=== PATIENT | female | born 1960 | race Caucasian/White ===

== ENCOUNTER 2018-09-15 08:15 | Emergency (ER) | payer OTHER ==
[2018-09-15] MEDS ORDERED: BENADRYL 50 MG/ML IV ONE (08:44)
[2018-09-15] MEDS ORDERED: solu-MEDROL 125 MG IV ONE (08:44)
[2018-09-15] MEDS ORDERED: DUONEB 0.5-3 MG/3 ml Neb IH ONE ×2 (08:44→09:47)
--- NOTE | 2018-09-15 08:52 | ERPHSYRPT ---
- History of Present Illness Time Seen by Provider: 09/15/18 08:30 Source: patient Exam Limitations: clinical condition Patient Subjective Stated Complaint: Pt took off her CPAP this morning and was short of breath, took Niacin at approx 0300 and also woke up itching, had a breathing treatment in the ambulance and was able to breath better and was no longer itchy Triage Nursing Assessment: Pt brought to the ER via EMS, vitals wnl, no edema, pulses normal, lungs clear but not taking in much air, rates pain 4/10 in chest due to breathing, no angio edema, denies itching, on 3 L NC Physician History: PATIENT WITH A HISTORY OF TYPE 2 DIABETES, COPD, AND HYPERTENSION, HAS ITCHING AFTER TAKING NIACIN, TOOK DOSE AT 3AM AND AWAKENED THIS AM WITH GENERALIZED ITCHING AND DIFFICULTY BREATHING ASSOCIATED WITH A PRODUCTIVE COUGH. ADMINISTERED A DUONEB AEROSOL TREATMENT PER EMS ENROUTE, AND ITCHING RESOLVED UPON ARRIVAL TO EMERGENCY. DENIES CHEST PAIN, FEVER, OR HIVES OR RASH. Timing/Duration: today Activities at Onset: none Severity of Dyspnea-Max: moderate Severity of Dyspnea-Current: moderate Possible Cause: occasional episodes Modifying Factors: Improves With: coughing, other (HAS ITCHING AFTER TAKING NIACIN) Associated Symptoms: wheezing (ITCHING) International travel in last 2 weeks: No Allergies/Adverse Reactions: No Known Drug Allergies Allergy (Verified 09/15/18 08:32) Home Medications: Albuterol 8 gm Mdi Hfa [Ventolin Hfa MDI] 8 gm IH UD 09/15/18 [History] Amitriptyline HCl 50 mg PO DAILY 09/15/18 [History] Aspirin EC 81 mg [Ecotrin 81 mg] 81 mg PO DAILY 09/15/18 [History] Gabapentin 300 mg PO TID 09/15/18 [History] Ipratropium/Albuterol Sulfate [Iprat-Albut 0.5-3(2.5) mg/3 ml] 3 ml IH QID 09/15 [History] Losartan/Hydrochlorothiazide [Losartan-Hctz 50-12.5 mg Tab] 1 each PO DAILY 07/30 [History] Metformin HCl 500 mg [Glucophage 500 MG] 500 mg PO BIDWM 09/15/18 [History ] Niacin 500 mg PO DAILY 09/15/18 [History] Omeprazole 20 mg PO DAILY 09/15/18 [History] Umeclidinium Brm/Vilanterol Tr [Anoro Ellipta 62.5-25 Mcg INH] 1 inh PO DAILY [History] Hx Pneumococcal Vaccination/Date Given: (last fall) - Review of Systems Constitutional: No Fever, No Chills Eyes: No Symptoms Ears, Nose, & Throat: No Symptoms Respiratory: No Cough Cardiac: No Chest Pain, No Edema, No Syncope Abdominal/Gastrointestinal: No Symptoms, No Abdominal Pain, No Nausea, No Vomiting, No Diarrhea Genitourinary Symptoms: No Symptoms, No Dysuria Musculoskeletal: No Symptoms, No Back Pain, No Neck Pain Skin: No Rash Neurological: No Dizziness, No Focal Weakness, No Sensory Changes Psychological: No Symptoms Endocrine: No Symptoms All Other Systems: Reviewed and Negative - Past Medical History Pertinent Past Medical History: Yes Respiratory History: COPD Endocrine Medical History: Diabetes Type II GI Medical History: GERD - Past Surgical History Past Surgical History: Yes Female Surgical History: Tubal Ligation Other Surgical History: vein stripping in right leg - Social History Smoking Status: Former smoker Exposure to second hand smoke: Yes Drug Use: none Patient Lives Alone: No - Female History Hx Now: No - Nursing Vital Signs Nursing Vital Signs: Initial Vital Signs Temperature 97.8 F 09/15/18 08:15 Pulse Rate 89 09/15/18 08:15 Blood Pressure 133/78 09/15/18 08:15 O2 Sat by Pulse Oximetry 94 L 09/15/18 08:15 Pain Scale Pain Intensity 4 - Physical Exam General Appearance: no apparent distress, alert Eye Exam: PERRL/EOMI Ears, Nose, Throat Exam: hearing grossly normal Neck Exam: normal inspection, supple Respiratory Exam: diminished breath sounds, crackles/rales (1/3 WAY UP POSTERIORLY) Cardiovascular/Chest Exam: normal heart sounds, regular rate/rhythm Abdominal/Gastrointestinal Exam: soft, No tenderness, No distention, No mass Extremity Exam: non-tender, normal range of motion, normal inspection, no calf tenderness, no pedal edema Peripheral Pulses Exam: carotid (R): 2+, carotid (L): 2+, femoral (R): 2+, femoral (L): 2+, dorsalis-pedis (R): 2+, dorsalis-pedis (L): 2+ Neurologic Exam: alert, oriented x 3, cooperative, eeg technician II-XII nml as tested, sensation nml, No motor deficits Skin Exam: normal color, warm, No dry SpO2 Interpretation: normal SpO2: 94 - Course EKG Interpreted by Me: RATE, Sinus Rhythm, Right Greig Deviation - Radiology Exams Chest X-ray Interpretation: Discussed w/ radiologist, Negative, No Infiltrates Ordered Tests: Active Orders 24 hr Category Date Time Status Business Objects STAT Care 09/15/18 08:45 Active EKG-ER Only STAT Care 09/15/18 08:44 Active Oxygen-ED Only Nasal Cannula 2 lpm Care 09/15/18 08:44 Active CHEST 2 VIEWS (PA AND LAT) Stat Exams 09/15/18 08:44 Completed CBC W DIFF Stat Lab 09/15/18 09:05 Completed CMP Stat Lab 09/15/18 09:05 Completed NT PRO BNP Stat Lab 09/15/18 09:05 Received PROTIME WITH INR Stat Lab 09/15/18 09:05 Completed TROPONIN Q3H Lab 09/15/18 09:05 Received TROPONIN Q3H Lab 09/15/18 12:00 Ordered TROPONIN Q3H Lab 09/15/18 15:00 Ordered TROPONIN Q3H Lab 09/15/18 18:00 Ordered TROPONIN Q3H Lab 09/15/18 21:00 Ordered Peak Expiratory Flow Rate ONCE RT 09/15/18 08:46 Active Respiratory Therapy Assessment DAILY RT 09/15/18 10:09 Active Medication Summary Discontinued Medications Generic Name Dose Route Start Last Admin Trade Name Freq PRN Reason Stop Dose Admin Albuterol/Ipratropium 3 ml 09/15/18 08:44 09/15/18 10:06 Duoneb 0.5-3 Mg/3 Ml Neb IH 09/15/18 08:45 3 ml STAT ONE Administration Albuterol/Ipratropium Confirm 09/15/18 09:47 Duoneb 0.5-3 Mg/3 Ml Neb Administered 09/15/18 09:48 Dose 3 ml IH .STK-MED ONE Diphenhydramine HCl 25 mg 09/15/18 08:44 09/15/18 09:37 Benadryl 50 Mg/Ml IV 09/15/18 08:45 25 mg STAT ONE Administration Diphenhydramine HCl Confirm 09/15/18 09:33 Benadryl 50 Mg/Ml Administered 09/15/18 09:34 Dose 50 mg .ROUTE .STK-MED ONE Ceftriaxone Sodium/Dextrose 1 g in 50 mls @ 100 mls/hr 09/15/18 09:44 09:49 Rocephin 1 Gm-D5w 50 Ml Bag IV 09/15/18 10:13 100 mls/hr STAT STA 100 mls/hr Administration Ceftriaxone Sodium/Dextrose Confirm 09/15/18 09:46 Rocephin 1 Gm-D5w 50 Ml Bag Administered 09/15/18 09:47 Dose 1 g in 50 mls @ ud IV .STK-MED ONE Methylprednisolone Sodium Succinate 125 mg 09/15/18 08:44 09/15/18 09:37 Solu-Medrol 125 Mg IV 09/15/18 08:45 125 mg STAT ONE Administration Methylprednisolone Sodium Succinate Confirm 09/15/18 09:33 Solu-Medrol 125 Mg Administered 09/15/18 09:34 Dose 125 mg .ROUTE .STK-MED ONE Lab/Rad Data: Laboratory Result Diagrams 09/15/18 09:05 09/15/18 09:05 Laboratory Results 09/15/18 09/15/18 09/15/18 Range/Units 09:05 09:05 09:05 WBC 10.7 H (4.0-10.5) K/mm3 RBC 4.86 (4.1-5.4) M/mm3 Hgb 14.2 (12.0-16.0) gm/dl Hct 43.8 (35-47) % MCV 90.1 (78-100) fl MCH 29.2 (26-32) pg MCHC 32.4 (32-36) g/dl RDW 13.6 (11.5-14.0) % Plt Count 278 (150-450) K/mm3 MPV 10.7 H (6-9.5) fl Gran % 74.6 H (36.0-66.0) % Eos # (Auto) 0.24 (0-0.5) Absolute Lymphs (auto) 1.85 (1.0-4.6) Absolute Monos (auto) 0.60 (0.0-1.3) Lymphocytes % 17.3 L (24.0-44.0) % Monocytes % 5.6 (0.0-12.0) % Eosinophils % 2.2 (0.00-5.0) % Basophils % 0.3 (0.0-0.4) % Absolute Granulocytes 7.99 H (1.4-6.9) Basophils # 0.03 (0-0.4) PT 12.3 (9.95-12.35) SECONDS INR 1.09 (0.8-3.0) Sodium 140 (137-145) mmol/L Potassium 3.7 (3.5-5.1) mmol/L Chloride 102 (98-107) mmol/L Carbon Dioxide 29 (22-30) mmol/L Anion Gap 12.4 (5-15) MEQ/L BUN 11 (7-17) mg/dL Creatinine 0.90 (0.52-1.04) mg/dL Estimated GFR > 60.0 ML/MIN Glucose 175 H (74-106) mg/dL Calcium 9.7 (8.4-10.2) mg/dL Total Bilirubin 1.20 (0.2-1.3) mg/dL AST 36 (14-36) U/L ALT 45 H (0-35) U/L Alkaline Phosphatase 109 (38-126) U/L Serum Total Protein 7.3 (6.3-8.2) g/dL Albumin 4.2 (3.5-5.0) g/dL - Progress Progress: improved Progress Note: SALINE LOCK, BENADRYL 25MG, SOLUMEDROL 125MG IV, FOLLOWED BY DUO NEB AERSOL [place] Antibiotics given: Yes Counseled pt/family regarding: lab results, diagnosis, need for follow-up, rad results - Departure Departure Disposition: Home Clinical Impression: EXACERBATION COPD, MEDICATION ALLERGY, DEPENDENT EDEMA Condition: Stable Critical Care Time: No Referrals: JJ LENNON [Primary Care Provider] - Additional Instructions: DISCONTINUE NIACIN. TAKE BENADRYL 50MG EVERY 4 HOURS FOR ITCHING. PREDNISONE 40 MG DAILY FOR 4 DAYS. ANTIBIOTIC CEFDINIR 300MG TWICE DAILY FOR 10 DAYS. LASIX 20MG DAILY FOR 5 DAYS ALONG WITH KLOR CON 10MEQ DAILY FOR 5 DAYS. CONTINUE ALBUTEROL AEROSOL TREATMENTS EVERY 4 HOURS NEEDED. Prescriptions: Cefdinir 300 mg PO BID #20 capsule Furosemide 20 mg [Lasix 20 mg] 20 mg PO DAILY #5 tablet Potassium Chloride 10 Meq Tab* [Klor Con 10 MEQ] 10 meq PO DAILY #5 tab Prednisone 20 mg [Deltasone 20 mg] 2 tab PO DAILY #10 tablet
[2018-09-15 09:21] LABS: BASOPHIL % 0.3 % (0.0-0.4); Basophil (Absolute #) 0.03 (0-0.4); Eosinophil % 2.2 % (0.00-5.0); Eosinophil (Absolute #) 0.24 (0-0.5); Granulocyte Absolute (ANC) 7.99 (1.4-6.9); Granulocytes % 74.6 % (36.0-66.0); Hematocrit 43.8 % (35-47); Hemoglobin 14.2 gm/dl (12.0-16.0); Lymphocyte (Absolute #) 1.85 (1.0-4.6); Lymphocytes % 17.3 % (24.0-44.0); Mean Cell Volume 90.1 fl (78-100); Mean Corpuscular Hemoglobin 29.2 pg (26-32); Mean Corpuscular Hgb Concent. 32.4 g/dl (32-36); Mean Platelet Volume 10.7 fl (6-9.5); Monocytes % 5.6 % (0.0-12.0); Platelet Count 278 K/mm3 (150-450); Red Blood Count 4.86 M/mm3 (4.1-5.4); Red Cell Distribution Width 13.6 % (11.5-14.0); White Blood Count 10.7 K/mm3 (4.0-10.5)
--- NOTE | 2018-09-15 09:23 | XRAY ---
Indication: Productive cough. Comparison: July 18, 2018. PA/lateral chest remains clear. Heart and mediastinal structures within normal limits. Bony thorax intact again with mild degenerative changes. Impression: Stable nonacute chest with chronic features.
[2018-09-15 09:29] LABS: INR 1.09 (0.8-3.0); PROTIME 12.3 SECONDS (9.95-12.35)
[2018-09-15] MEDS ORDERED: solu-MEDROL 125 MG ONE (09:33)
[2018-09-15] MEDS ORDERED: BENADRYL 50 MG/ML ONE (09:33)
[2018-09-15 09:34] LABS: ALBUMIN 4.2 g/dL (3.5-5.0); ALKALINE PHOSPHATASE 109 U/L (38-126); ANION GAP 12.4 MEQ/L (5-15); BLOOD UREA NITROGEN 11 mg/dL (7-17); CHLORIDE 102 mmol/L (98-107); Calcium 9.7 mg/dL (8.4-10.2); Carbon Dioxide 29 mmol/L (22-30); Glucose 175 mg/dL (74-106); Potassium 3.7 mmol/L (3.5-5.1); SGOT/AST 36 U/L (14-36); SGPT/ALT 45 U/L (0-35); SODIUM 140 mmol/L (137-145); Total Protein 7.3 g/dL (6.3-8.2)
[2018-09-15] MEDS ORDERED: ROCEPHIN 1 Gm-D5w 50 ml Bag** 1 G/50 ML IVPB IV STA (09:44)
[2018-09-15] MEDS ORDERED: ROCEPHIN 1 Gm-D5w 50 ml Bag** 1 G/50 ML IVPB IV ONE (09:46)
[2018-09-15 10:30] VITALS: BP 118/72; PULSE 89; O2SAT 92
== END 2018-09-15 10:40 | disposition home or self-care (01) ==
LOC: ED 08:15
DX: J44.1 Chronic obstructive pulmonary disease with (acute) exacerbation (principal); T50.905A Adverse effect of unspecified drugs, medicaments and biological substances, initial encounter; R60.9 Edema, unspecified
CPT/HCPCS: 36415; 71046; 80053; 83880; 84484; 85025; 85610; 93005; 93041; 94640; 96365; 96374; 96375; 99284; J0696; J1200; J2930; A9270-GY

== ENCOUNTER 2020-07-14 16:07 | Observation (INO) | payer MEDICARE ==
[2020-07-14 16:54] LABS: Absolute Neutrophil Ct (ANC) 4.67 (1.4-6.9); BASOPHIL % 0.6 % (0.0-0.4); Basophil (Absolute #) 0.04 (0-0.4); Eosinophil % 3.8 % (0.00-5.0); Eosinophil (Absolute #) 0.27 (0-0.5); Hematocrit 40.5 % (35-47); Hemoglobin 12.9 gm/dl (12.0-16.0); Lymphocyte (Absolute #) 1.61 (1.0-4.6); Lymphocytes % 22.5 % (24.0-44.0); Mean Cell Volume 87.7 fl (78-100); Mean Corpuscular Hemoglobin 27.9 pg (26-32); Mean Corpuscular Hgb Concent. 31.9 g/dl (32-36); Mean Platelet Volume 10.6 fl (7.5-11.0); Monocyte (Absolute #) 0.57 (0.0-1.3); Neutrophil % 65.1 % (36.0-66.0); Platelet Count 275 K/mm3 (150-450); Red Blood Count 4.62 M/mm3 (4.1-5.4); Red Cell Distribution Width 13.6 % (11.5-14.0); White Blood Count 7.2 K/mm3 (4.0-10.5)
[2020-07-14 17:09] LABS: ALBUMIN 4.3 g/dL (3.5-5.0); ALKALINE PHOSPHATASE 103 U/L (38-126); ANION GAP 12.2 MEQ/L (5-15); BLOOD UREA NITROGEN 11 mg/dL (7-17); CHLORIDE 101 mmol/L (98-107); Calcium 10.1 mg/dL (8.4-10.2); Carbon Dioxide 28 mmol/L (22-30); Creatinine 1 0.79 mg/dL (0.52-1.04); EST GLOMERULAR FILTRATION RATE > 60.0 ML/MIN; Glucose 124 mg/dL (74-106); MAGNESIUM 1.8 mg/dL (1.6-2.3); NT PRO BNP 51.6 pg/mL (0-900); Potassium 3.8 mmol/L (3.5-5.1); SGOT/AST 91 U/L (14-36); SGPT/ALT 69 U/L (0-35); SODIUM 137 mmol/L (137-145); Total Protein 7.2 g/dL (6.3-8.2)
--- NOTE | 2020-07-14 17:45 | ERPHSYRPT ---
- History of Present Illness Time Seen by Provider: 07/14/20 16:20 Historian: patient Exam Limitations: no limitations Patient Subjective Stated Complaint: PT states "I had outpatient labs drawn and i was having chest pain before I got there. I had to break up a fight between my dog and the neighbors and I ran outside without my oxygen on and my chest started to hurt." Triage Nursing Assessment: Pt presented alert and oriented X 3, skin pwd. Pt able to speak in clear full sentences. Pt in no apparent respiratory distress. Pt has oxygen on. Pt has no edema noted. Pt ambulates with a slow limp. Physician History: Patient is a 52-year-old female presents to our emergency department complaint chest pain. Patient states she has a history of cardiovascular disease with some "minor" occlusions. Patient had a cath in 2018 and was told that she had some blockages that were not significant enough to intervene. Patient states that her dogs got into a fight. She ran outdoors. Patient became short of breath. Patient then developed chest pain. Patient states she has intermittent chest pain. Pain usually resolves with nitro. Patient took her nitro the pain did not get any better. Patient felt nauseous. No vomiting. No trauma. No fever. Patient does have history of COPD. She uses 2 L of oxygen 24 hours a day. Patient otherwise voices no other complaints concerns at this time. Timing/Duration: today Activities at Onset: emotional stress Quality: aching Location: substernal Chest Pain Radiation: no radiation Severity of Pain-Max: moderate Severity of Pain-Current: mild Modifying Factors: Improves With: nothing Associated Symptoms: denies symptoms Prior Chest Pain/Cardiac Workup: cardiac cath Nitro Today/Relief: 0.4 mg x 3 Aspirin Treatment Today: 81 mg x 1 Allergies/Adverse Reactions: niacin Allergy (Severe, Verified 07/14/20 16:25) swelling, itching, throat closing Home Medications: Albuterol 8 gm Mdi Hfa [Ventolin Hfa MDI] 8 gm IH UD 09/15/18 [History] Amitriptyline HCl 50 mg PO DAILY 09/15/18 [History] Aspirin EC 81 mg [Ecotrin 81 mg] 81 mg PO DAILY 09/15/18 [History] Gabapentin 300 mg PO TID 09/15/18 [History] Ipratropium/Albuterol Sulfate [Iprat-Albut 0.5-3(2.5) mg/3 ml] 3 ml IH QID 09/15/18 [History] Losartan/Hydrochlorothiazide [Losartan-Hctz 50-12.5 mg Tab] 1 each PO DAILY 09/15/18 [History] Metformin HCl 500 mg [Glucophage 500 MG] 500 mg PO BIDWM 09/15/18 [History] Omeprazole 20 mg PO DAILY 09/15/18 [History] Umeclidinium Brm/Vilanterol Tr [Anoro Ellipta 62.5-25 Mcg INH] 1 inh PO DAILY 09/15/18 [History] Ezetimibe 10 mg [Zetia 10 MG] 10 mg PO DAILY 07/14/20 [History] Levothyroxine Sodium [Levothyroxine] 50 mcg PO DAILY 07/14/20 [History] Trazodone HCl 100 mg PO DAILY 07/14/20 [History] Hx Tetanus, Diphtheria Vaccination/Date Given: Yes Hx Influenza Vaccination/Date Given: Yes Hx Pneumococcal Vaccination/Date Given: Yes Immunizations Up to Date: Yes Travel Risk - International Travel Have you traveled outside of the country in past 3 weeks: No - Coronavirus Screening Are you exhibiting any of the following symptoms?: No Close contact with a COVID-19 positive Pt in past 14-21 Days: No - Vaccine Status Have you recieved a Covid-19 vaccination: No - Vaccination Dates Comment: had first moderna shot but not the second - Review of Systems Constitutional: No Symptoms, No Fever, No Chills Eyes: No Symptoms Ears, Nose, & Throat: No Symptoms Respiratory: No Symptoms, No Cough, No Dyspnea Cardiac: No Symptoms, No Chest Pain, No Edema, No Syncope Abdominal/Gastrointestinal: No Symptoms, No Abdominal Pain, No Nausea, No Vomiting, No Diarrhea Genitourinary Symptoms: No Symptoms, No Dysuria Musculoskeletal: No Symptoms, No Back Pain, No Neck Pain Skin: No Symptoms, No Rash Neurological: No Symptoms, No Dizziness, No Focal Weakness, No Sensory Changes Psychological: No Symptoms Endocrine: No Symptoms Hematologic/Lymphatic: No Symptoms Immunological/Allergic: No Symptoms All Other Systems: Reviewed and Negative - Past Medical History Pertinent Past Medical History: Yes Neurological History: Seizures ENT History: No Pertinent History Cardiac History: High Cholesterol, Hypertension Respiratory History: COPD Endocrine Medical History: Diabetes Type II, Hypothyroidism Musculoskeletal History: Arthritis GI Medical History: Esophageal Disorder, GERD Psycho-Social History: Anxiety, Depression Female Reproductive Disorders: No Pertinent History - Past Surgical History Past Surgical History: Yes Female Surgical History: Tubal Ligation Other Surgical History: vein stripping in right leg - Social History Smoking Status: Former smoker Exposure to second hand smoke: Yes Drug Use: none Patient Lives Alone: No - Female History Hx Now: No - Nursing Vital Signs Nursing Vital Signs: Initial Vital Signs Temperature 98.8 F 07/14/20 16:12 Pulse Rate 84 07/14/20 16:12 Respiratory Rate 20 07/14/20 16:12 Blood Pressure 102/68 07/14/20 16:12 O2 Sat by Pulse Oximetry 95 07/14/20 16:12 Pain Scale Pain Intensity 2 - Physical Exam General Appearance: no apparent distress, alert Eye Exam: PERRL/EOMI, eyes nml inspection Ears, Nose, Throat Exam: normal ENT inspection, moist mucous membranes Neck Exam: normal inspection, non-tender, supple, full range of motion Respiratory Exam: normal breath sounds, lungs clear, No respiratory distress Cardiovascular Exam: regular rate/rhythm, normal heart sounds Gastrointestinal/Abdomen Exam: soft, No tenderness, No mass Back Exam: normal inspection, No CVA tenderness, No vertebral tenderness Extremity Exam: normal inspection, normal range of motion Neurologic Exam: alert, oriented x 3, cooperative, normal mood/affect, sensation nml, No motor deficits Skin Exam: normal color, warm, dry Lymphatic Exam: No adenopathy SpO2 Interpretation: normal SpO2: 98 O2 Delivery: Room Air - Course Nursing assessment & vital signs reviewed: Yes EKG Interpreted by Me: RATE (85), Sinus Rhythm, NORMAL AXIS, NORMAL INTERVALS - Radiology Exams Chest X-ray Interpretation: Reviewed by me (No infiltrates no consolidations, normal bony thorax borderline cardiomegaly) Ordered Tests: Active Orders 24 hr Category Date Time Status Executive Associate STAT Care 07/14/20 16:47 Active EKG-ER Only STAT Care 07/14/20 16:46 Active IV Insertion STAT Care 07/14/20 16:46 Active Pulse Oximetry (ED) STAT Care 07/14/20 16:46 Active CHEST 1 VIEW (PORTABLE) Stat Exams 07/14/20 16:47 Taken CBC W DIFF Stat Lab 07/14/20 16:40 Completed CMP Stat Lab 07/14/20 16:46 Completed MAGNESIUM Stat Lab 07/14/20 16:46 Completed NT PRO BNP Stat Lab 07/14/20 16:46 Completed TROPONIN Q3H Lab 07/14/20 17:00 Completed TROPONIN Q3H Lab 07/14/20 20:00 Ordered TROPONIN Q3H Lab 07/14/20 23:00 Ordered TROPONIN Q3H Lab 07/15/20 02:00 Ordered TROPONIN Q3H Lab 07/15/20 05:00 Ordered UA W/RFX UR CULTURE Stat Lab 07/14/20 18:21 Completed Urine Triage Profile Stat Lab 07/14/20 18:21 Completed Lab/Rad Data: Laboratory Result Diagrams 07/14/20 16:40 07/14/20 16:46 Laboratory Results 07/14/20 07/14/20 07/14/20 Range/Units 18:21 18:21 18:19 WBC (4.0-10.5) K/mm3 RBC (4.1-5.4) M/mm3 Hgb (12.0-16.0) gm/dl Hct (35-47) % MCV (78-100) fl MCH (26-32) pg MCHC (32-36) g/dl RDW (11.5-14.0) % Plt Count (150-450) K/mm3 MPV (7.5-11.0) fl Gran % (36.0-66.0) % Eos # (Auto) (0-0.5) Absolute Lymphs (auto) (1.0-4.6) Absolute Monos (auto) (0.0-1.3) Lymphocytes % (24.0-44.0) % Monocytes % (0.0-12.0) % Eosinophils % (0.00-5.0) % Basophils % (0.0-0.4) % Absolute Granulocytes (1.4-6.9) Basophils # (0-0.4) Sodium (137-145) mmol/L Potassium (3.5-5.1) mmol/L Chloride (98-107) mmol/L Carbon Dioxide (22-30) mmol/L Anion Gap (5-15) MEQ/L BUN (7-17) mg/dL Creatinine (0.52-1.04) mg/dL Estimated GFR ML/MIN Glucose (74-106) mg/dL Calcium (8.4-10.2) mg/dL Magnesium (1.6-2.3) mg/dL Total Bilirubin (0.2-1.3) mg/dL AST (14-36) U/L ALT (0-35) U/L Alkaline Phosphatase (38-126) U/L Troponin I (0.000-0.034) ng/mL NT-Pro-B Natriuret Pep (0-900) pg/mL Serum Total Protein (6.3-8.2) g/dL Albumin (3.5-5.0) g/dL Urine Color YELLOW (YELLOW) Urine Appearance CLEAR (CLEAR) Urine pH 6.0 (5-6) Ur Specific [place] 1.016 (1.005-1.025) Urine Protein NEGATIVE (Negative) Urine Ketones NEGATIVE (NEGATIVE) Urine Blood NEGATIVE (0-5) Marc/ul Urine Nitrite NEGATIVE (NEGATIVE) Urine Bilirubin NEGATIVE (NEGATIVE) Urine Urobilinogen NEGATIVE (0-1) mg/dL Ur Leukocyte Esterase NEGATIVE (NEGATIVE) Urine WBC (Auto) NONE (0-5) /HPF Urine RBC (Auto) NONE (0-2) /HPF U Epithel Cells (Auto) NONE (FEW) /HPF Urine Bacteria (Auto) NONE (NEGATIVE) /HPF Urine Mucus (Auto) SLIGHT (NEGATIVE) /HPF Urine Culture Reflexed NO (NO) Urine Glucose NEGATIVE (NEGATIVE) mg/dL Urine Opiates Level NEGATIVE (NEGATIVE) Ur Methadone NEGATIVE (NEGATIVE) Urine Barbiturates NEGATIVE (NEGATIVE) Ur Phencyclidine (PCP) NEGATIVE (NEGATIVE) Urine Amphetamine NEGATIVE (NEGATIVE) U Benzodiazepine Level NEGATIVE (NEGATIVE) Urine Cocaine NEGATIVE (NEGATIVE) Urine Marijuana (THC) NEGATIVE (NEGATIVE) Influenza Type A Ag NEGATIVE (NEGATIVE) Influenza Type B Ag NEGATIVE (NEGATIVE) RSV (PCR) NEGATIVE (Negative) SARS-CoV-2 (PCR) NEGATIVE (NEGATIVE) 07/14/20 07/14/20 07/14/20 Range/Units 17:00 16:46 16:40 WBC 7.2 (4.0-10.5) K/mm3 RBC 4.62 (4.1-5.4) M/mm3 Hgb 12.9 (12.0-16.0) gm/dl Hct 40.5 (35-47) % MCV 87.7 (78-100) fl MCH 27.9 (26-32) pg MCHC 31.9 L (32-36) g/dl RDW 13.6 (11.5-14.0) % Plt Count 275 (150-450) K/mm3 MPV 10.6 (7.5-11.0) fl Gran % 65.1 (36.0-66.0) % Eos # (Auto) 0.27 (0-0.5) Absolute Lymphs (auto) 1.61 (1.0-4.6) Absolute Monos (auto) 0.57 (0.0-1.3) Lymphocytes % 22.5 L (24.0-44.0) % Monocytes % 8.0 (0.0-12.0) % Eosinophils % 3.8 (0.00-5.0) % Basophils % 0.6 (0.0-0.4) % Absolute Granulocytes 4.67 (1.4-6.9) Basophils # 0.04 (0-0.4) Sodium 137 (137-145) mmol/L Potassium 3.8 (3.5-5.1) mmol/L Chloride 101 (98-107) mmol/L Carbon Dioxide 28 (22-30) mmol/L Anion Gap 12.2 (5-15) MEQ/L BUN 11 (7-17) mg/dL Creatinine 0.79 (0.52-1.04) mg/dL Estimated GFR > 60.0 ML/MIN Glucose 124 H (74-106) mg/dL Calcium 10.1 (8.4-10.2) mg/dL Magnesium 1.8 (1.6-2.3) mg/dL Total Bilirubin 0.60 (0.2-1.3) mg/dL AST 91 H (14-36) U/L ALT 69 H (0-35) U/L Alkaline Phosphatase 103 (38-126) U/L Troponin I < 0.012 (0.000-0.034) ng/mL NT-Pro-B Natriuret Pep 51.6 (0-900) pg/mL Serum Total Protein 7.2 (6.3-8.2) g/dL Albumin 4.3 (3.5-5.0) g/dL Urine Color (YELLOW) Urine Appearance (CLEAR) Urine pH (5-6) Ur Specific [place] (1.005-1.025) Urine Protein (Negative) Urine Ketones (NEGATIVE) Urine Blood (0-5) Marc/ul Urine Nitrite (NEGATIVE) Urine Bilirubin (NEGATIVE) Urine Urobilinogen (0-1) mg/dL Ur Leukocyte Esterase (NEGATIVE) Urine WBC (Auto) (0-5) /HPF Urine RBC (Auto) (0-2) /HPF U Epithel Cells (Auto) (FEW) /HPF Urine Bacteria (Auto) (NEGATIVE) /HPF Urine Mucus (Auto) (NEGATIVE) /HPF Urine Culture Reflexed (NO) Urine Glucose (NEGATIVE) mg/dL Urine Opiates Level (NEGATIVE) Ur Methadone (NEGATIVE) Urine Barbiturates (NEGATIVE) Ur Phencyclidine (PCP) (NEGATIVE) Urine Amphetamine (NEGATIVE) U Benzodiazepine Level (NEGATIVE) Urine Cocaine (NEGATIVE) Urine Marijuana (THC) (NEGATIVE) Influenza Type A Ag (NEGATIVE) Influenza Type B Ag (NEGATIVE) RSV (PCR) (Negative) SARS-CoV-2 (PCR) (NEGATIVE) - Progress Progress: improved Air Movement: good Progress Note: Patient reassessed. No active chest pain. Distal troponin negative. Patient took her aspirin dose today as well as her nitroglycerin. In light of patient's cardiac risk factors we decided to admit patient. Case discussed with Dr. Olivas who accepts admission to observation. Patient was Covid negative. 07/14/20 20:09 Blood Culture(s) Obtained: No Antibiotics given: No Discussed with : Maynor Counseled pt/family regarding: lab results, diagnosis, rad results - Departure Departure Disposition: Observation Clinical Impression: ACS (acute coronary syndrome) Condition: Stable Critical Care Time: No Referrals: DOUGIE DARLING MD [Primary Care Provider] - Additional Instructions: Discharge/Care Plan SHIRLEY GODINEZ was seen on 07/14/20 in the Emergency Room. The patient was counseled regarding Diagnosis,Lab results, Imaging studies, need for follow up and when to return to the Emergency Room. Prescriptions given: Discharge Note I have spoken with the patient and/or caregivers. I have explained the patient's condition, diagnosis and treatment plan based on the information available to me at this time. I have answered the patient's and/or caregiver's questions and addressed any concerns. The patient and/or caregivers have as good understanding of the patient's diagnosis, condition and treatment plan as can be expected at t his point. The vital signs have been stable. The patient's condition is stable and appropriate for discharge from the emergency department. The patient will pursue further outpatient evaluation with the primary care physician or other designated or consulting physician as outlined in the discharge instructions. The patient and/or caregivers are agreeable to this plan of care and follow-up instructions have been explained in detail. The patient and/or caregivers have received these instruction. The patient/and or caregivers are aware that any significant change in condition or worsening of symptoms should prompt an immediate return to this or the closest emergency department or call 911.
[2020-07-14 18:51] LABS: Appearance CLEAR (CLEAR); Bilirubin NEGATIVE (NEGATIVE); Blood NEGATIVE Ery/ul (0-5); Glucose NEGATIVE (NEGATIVE); Ketones NEGATIVE (NEGATIVE); Leukocyte Esterase NEGATIVE (NEGATIVE); Mucus SLIGHT /HPF (NEGATIVE); Nitrite NEGATIVE (NEGATIVE); Protein,Urine Dip NEGATIVE (Negative); Specific Gravity 1.016 (1.005-1.025); Urobilinogen NEGATIVE mg/dL (0-1)
[2020-07-14 19:12] LABS: Amphetamine,Urine NEGATIVE (NEGATIVE); Barbiturate,Urine NEGATIVE (NEGATIVE); Benzodiazepine,Urine NEGATIVE (NEGATIVE); Cocaine,Urine NEGATIVE (NEGATIVE); Methadone,Urine NEGATIVE (NEGATIVE); Opiate,Urine NEGATIVE (NEGATIVE); PCP,Urine NEGATIVE (NEGATIVE); THC,Urine NEGATIVE (NEGATIVE)
[2020-07-14 19:26] LABS: INFLUENZA A NEGATIVE (NEGATIVE); INFLUENZA B NEGATIVE (NEGATIVE); RESPIRATORY SYNCTIAL VIRUS NEGATIVE (Negative)
[2020-07-14] MEDS ORDERED: Zofran 4 MG/2 ML VIAL IV PRN (20:26)
[2020-07-14] MEDS ORDERED: MILK OF MAGNESIA 30 ML PO PRN (20:26)
[2020-07-14] MEDS ORDERED: Senokot-S Tablet PO PRN (20:26)
[2020-07-14] MEDS ORDERED: MAALOX ES 30 ML UNIT DOSE PO PRN (20:26)
[2020-07-14] MEDS ORDERED: TYLENOL 325 MG PO PRN (20:26)
[2020-07-14] MEDS ORDERED: DUONEB 0.5-3 MG/3 ml Neb IH PRN (21:40)
[2020-07-14] MEDS: Glucophage 500 MG PO SCH (21:52)
[2020-07-14] MEDS: NEURONTIN 300 MG PO SCH (21:52)
[2020-07-14] MEDS ORDERED: DESYREL 50 MG PO SCH (22:00)
[2020-07-15 05:27] LABS: Risk Ratio 5.3
[2020-07-15] MEDS ORDERED: VENTOLIN COMMON CANISTER IH SCH (07:00)
[2020-07-15] MEDS ORDERED: Advair Hfa 115/21 Common canister IH SCH (07:00)
[2020-07-15] MEDS: Glucophage 500 MG PO SCH ×2 (07:24→17:16)
--- NOTE | 2020-07-15 08:35 | XRAY ---
Indication: Chest pain. Comparison: September 15, 2018. Portable apical lordotic chest remains clear with new cardiomegaly. Bony thorax intact again with mild degenerative changes.
--- NOTE | 2020-07-15 09:45 | PCM.HP ---
History of Present Illness - Chief Complaint Chief Complaint: acs History of Present Illness: is a 60 year old female with no local physician, she arrived to the ER yesterday evening with the complaint of chest pain, it began when she was breaking up a fight with her dog and the neighbor's dog, she ran out without her oxygen and became very short of breath and has heaviness in her chest. She has a longstanding history of chest pain and has seen Dr Pelaez in the past, she reports that she had a heart cath with minimal disease and no intervention in 2018, she feels much better today but still has a mild heavy sensation in her chest but no pain. She often has sharp pain in her chest with shortness of breath, she has copd and chronic hypoxemic respiratory failure and follows with Dr Narayanan as well. - Review of Systems Constitutional: No Fever, No Chills Respiratory: Short Of Breath, No Cough Cardiac: Chest Pain Abdominal/Gastrointestinal: No Abdominal Pain, No Nausea, No Vomiting, No Diarrhea Skin: No Rash All Other Systems: Reviewed and Negative Medications & Allergies Home Medications: Home Medication List Aspirin EC 81 mg [Ecotrin 81 mg] 81 mg PO DAILY 09/15/18 [History Confirmed 07/14/20] Gabapentin 300 mg PO TID 09/15/18 [History Confirmed 07/14/20] Ipratropium/Albuterol Sulfate [Iprat-Albut 0.5-3(2.5) mg/3 ml] 3 ml IH QID PRN 09/15/18 [History Confirmed 07/14/20] Losartan/Hydrochlorothiazide [Losartan-Hctz 50-12.5 mg Tab] 1 each PO DAILY 07/30 [History Confirmed 07/14/20] Metformin HCl 500 mg [Glucophage 500 MG] 500 mg PO BIDWM 09/15/18 [History Confirmed 07/14/20] Omeprazole 20 mg PO DAILY 09/15/18 [History Confirmed 07/14/20] Albuterol Sulfate [Ventolin Hfa] 18 gm IH UD 07/14/20 [History Confirmed 07/14/20] Ezetimibe 10 mg [Zetia 10 MG] 10 mg PO DAILY 07/14/20 [History Confirmed 07/14/20] Fluticasone/Umeclidin/Vilanter [Trelegy Ellipta 100-62.5-25] 1 each IH DAILY 07/14/20 [History Confirmed 07/14/20] Isosorbide Mononitrate [Isosorbide Mononitrate ER] 30 mg PO DAILY 07/14/20 [History Confirmed 07/14/20] Levothyroxine Sodium [Levothyroxine] 50 mcg PO DAILY 07/14/20 [History Confirmed 07/14/20] Nitroglycerin 0.4 mg Tablet [Nitrostat 0.4 MG Tablet] 0.4 mg SL Q5MIN PRN MR X 3 PRN 07/14/20 [History Confirmed 07/14/20] Trazodone HCl 100 mg PO HS 07/14/20 [History Confirmed 07/14/20] Allergies/Adverse Reactions: Allergies Allergy/AdvReac Type Severity Reaction Status Date / Time niacin Allergy Severe swelling, Verified 07/14/20 16:25 itching, throat closing - Past Medical History Past Medical History: Yes Neurological History: Seizures ENT History: No Pertinent History Cardiac History: High Cholesterol, Hypertension Respiratory History: COPD Endocrine Medical History: Diabetes Type II, Hypothyroidism Musculoskelatal History: Arthritis GI Medical History: Esophageal Disorder, GERD Pyscho-Social History: Anxiety, Depression Reproductive Disorders: No Pertinent History - Female History Are you now?: No - Past Surgical History Past Surgical History: Yes Female Surgical History: Tubal Ligation Other Surgical History: vein stripping in right leg - Social History Smoking Status: Former smoker Exposure to second hand smoke: Yes Alcohol: Rarely Drug Use: none - Physical Exam Vital Signs: Vital Signs - 24 hr Temp Pulse Pulse Resp BP Pulse Ox 07/15/20 08:14 91 L 07/15/20 08:03 79 18 91 L 07/15/20 07:39 98.0 F 79 16 135/75 94 L 07/15/20 04:00 97.4 F 67 20 114/55 92 L 07/14/20 23:25 97.6 F 70 20 122/66 94 L 07/14/20 21:43 72 20 94 L 07/14/20 20:32 97.5 F 73 22 117/62 98 07/14/20 20:16 98 07/14/20 20:00 68 19 105/63 96 07/14/20 19:00 98.2 F 72 18 110/67 98 07/14/20 17:14 98.8 F 75 20 97/71 98 07/14/20 16:12 98.8 F 86 84 20 102/68 95 Oxygen-Last 24 hours Oxygen Flowrate (L/min)-RT 2 Oxygen Flowrate (L/min)-RT 2 Oxygen Flowrate (L/min)-RT 2 General Appearance: no apparent distress, obese Neurologic Exam: alert, oriented x 3, cooperative Respiratory Exam: diminished breath sounds, prolonged expirations Cardiovascular Exam: regular rate/rhythm, normal heart sounds, normal peripheral pulses Gastrointestinal/Abdomen Exam: soft, normal bowel sounds, No tenderness, No mass Extremity Exam: normal inspection, normal range of motion, pelvis stable Skin Exam: normal color, warm, dry, No rash Results - Labs Lab/Micro Results: Lab Results-Last 24 Hours 07/14/20 07/14/20 07/14/20 Range/Units 16:40 16:46 17:00 WBC 7.2 (4.0-10.5) K/mm3 RBC 4.62 (4.1-5.4) M/mm3 Hgb 12.9 (12.0-16.0) gm/dl Hct 40.5 (35-47) % MCV 87.7 (78-100) fl MCH 27.9 (26-32) pg MCHC 31.9 L (32-36) g/dl RDW 13.6 (11.5-14.0) % Plt Count 275 (150-450) K/mm3 MPV 10.6 (7.5-11.0) fl Gran % 65.1 (36.0-66.0) % Eos # (Auto) 0.27 (0-0.5) Absolute Lymphs (auto) 1.61 (1.0-4.6) Absolute Monos (auto) 0.57 (0.0-1.3) Lymphocytes % 22.5 L (24.0-44.0) % Monocytes % 8.0 (0.0-12.0) % Eosinophils % 3.8 (0.00-5.0) % Basophils % 0.6 (0.0-0.4) % Absolute Granulocytes 4.67 (1.4-6.9) Basophils # 0.04 (0-0.4) Sodium 137 (137-145) mmol/L Potassium 3.8 (3.5-5.1) mmol/L Chloride 101 (98-107) mmol/L Carbon Dioxide 28 (22-30) mmol/L Anion Gap 12.2 (5-15) MEQ/L BUN 11 (7-17) mg/dL Creatinine 0.79 (0.52-1.04) mg/dL Estimated GFR > 60.0 ML/MIN Glucose 124 H (74-106) mg/dL POC Glucometer (74 to 106) mg/dL Calcium 10.1 (8.4-10.2) mg/dL Magnesium 1.8 (1.6-2.3) mg/dL Total Bilirubin 0.60 (0.2-1.3) mg/dL AST 91 H (14-36) U/L ALT 69 H (0-35) U/L Alkaline Phosphatase 103 (38-126) U/L Troponin I < 0.012 (0.000-0.034) ng/mL NT-Pro-B Natriuret Pep 51.6 (0-900) pg/mL Serum Total Protein 7.2 (6.3-8.2) g/dL Albumin 4.3 (3.5-5.0) g/dL Triglycerides (30-150) mg/dL Cholesterol (50-200) mg/dL LDL Cholesterol (30-100) mg/dL HDL Cholesterol (40-60) mg/dL Heart Disease Risk Ratio Urine Color (YELLOW) Urine Appearance (CLEAR) Urine pH (5-6) Ur Specific [place] (1.005-1.025) Urine Protein (Negative) Urine Ketones (NEGATIVE) Urine Blood (0-5) Marc/ul Urine Nitrite (NEGATIVE) Urine Bilirubin (NEGATIVE) Urine Urobilinogen (0-1) mg/dL Ur Leukocyte Esterase (NEGATIVE) Urine WBC (Auto) (0-5) /HPF Urine RBC (Auto) (0-2) /HPF U Epithel Cells (Auto) (FEW) /HPF Urine Bacteria (Auto) (NEGATIVE) /HPF Urine Mucus (Auto) (NEGATIVE) /HPF Urine Culture Reflexed (NO) Urine Glucose (NEGATIVE) mg/dL Urine Opiates Level (NEGATIVE) Ur Methadone (NEGATIVE) Urine Barbiturates (NEGATIVE) Ur Phencyclidine (PCP) (NEGATIVE) Urine Amphetamine (NEGATIVE) U Benzodiazepine Level (NEGATIVE) Urine Cocaine (NEGATIVE) Urine Marijuana (THC) (NEGATIVE) Influenza Type A Ag (NEGATIVE) Influenza Type B Ag (NEGATIVE) RSV (PCR) (Negative) SARS-CoV-2 (PCR) (NEGATIVE) 07/14/20 07/14/20 07/14/20 Range/Units 18:19 18:21 18:21 WBC (4.0-10.5) K/mm3 RBC (4.1-5.4) M/mm3 Hgb (12.0-16.0) gm/dl Hct (35-47) % MCV (78-100) fl MCH (26-32) pg MCHC (32-36) g/dl RDW (11.5-14.0) % Plt Count (150-450) K/mm3 MPV (7.5-11.0) fl Gran % (36.0-66.0) % Eos # (Auto) (0-0.5) Absolute Lymphs (auto) (1.0-4.6) Absolute Monos (auto) (0.0-1.3) Lymphocytes % (24.0-44.0) % Monocytes % (0.0-12.0) % Eosinophils % (0.00-5.0) % Basophils % (0.0-0.4) % Absolute Granulocytes (1.4-6.9) Basophils # (0-0.4) Sodium (137-145) mmol/L Potassium (3.5-5.1) mmol/L Chloride (98-107) mmol/L Carbon Dioxide (22-30) mmol/L Anion Gap (5-15) MEQ/L BUN (7-17) mg/dL Creatinine (0.52-1.04) mg/dL Estimated GFR ML/MIN Glucose (74-106) mg/dL POC Glucometer (74 to 106) mg/dL Calcium (8.4-10.2) mg/dL Magnesium (1.6-2.3) mg/dL Total Bilirubin (0.2-1.3) mg/dL AST (14-36) U/L ALT (0-35) U/L Alkaline Phosphatase (38-126) U/L Troponin I (0.000-0.034) ng/mL NT-Pro-B Natriuret Pep (0-900) pg/mL Serum Total Protein (6.3-8.2) g/dL Albumin (3.5-5.0) g/dL Triglycerides (30-150) mg/dL Cholesterol (50-200) mg/dL LDL Cholesterol (30-100) mg/dL HDL Cholesterol (40-60) mg/dL Heart Disease Risk Ratio Urine Color YELLOW (YELLOW) Urine Appearance CLEAR (CLEAR) Urine pH 6.0 (5-6) Ur Specific [place] 1.016 (1.005-1.025) Urine Protein NEGATIVE (Negative) Urine Ketones NEGATIVE (NEGATIVE) Urine Blood NEGATIVE (0-5) Marc/ul Urine Nitrite NEGATIVE (NEGATIVE) Urine Bilirubin NEGATIVE (NEGATIVE) Urine Urobilinogen NEGATIVE (0-1) mg/dL Ur Leukocyte Esterase NEGATIVE (NEGATIVE) Urine WBC (Auto) NONE (0-5) /HPF Urine RBC (Auto) NONE (0-2) /HPF U Epithel Cells (Auto) NONE (FEW) /HPF Urine Bacteria (Auto) NONE (NEGATIVE) /HPF Urine Mucus (Auto) SLIGHT (NEGATIVE) /HPF Urine Culture Reflexed NO (NO) Urine Glucose NEGATIVE (NEGATIVE) mg/dL Urine Opiates Level NEGATIVE (NEGATIVE) Ur Methadone NEGATIVE (NEGATIVE) Urine Barbiturates NEGATIVE (NEGATIVE) Ur Phencyclidine (PCP) NEGATIVE (NEGATIVE) Urine Amphetamine NEGATIVE (NEGATIVE) U Benzodiazepine Level NEGATIVE (NEGATIVE) Urine Cocaine NEGATIVE (NEGATIVE) Urine Marijuana (THC) NEGATIVE (NEGATIVE) Influenza Type A Ag NEGATIVE (NEGATIVE) Influenza Type B Ag NEGATIVE (NEGATIVE) RSV (PCR) NEGATIVE (Negative) SARS-CoV-2 (PCR) NEGATIVE (NEGATIVE) 07/14/20 07/14/20 07/14/20 Range/Units 20:20 21:49 23:00 WBC (4.0-10.5) K/mm3 RBC (4.1-5.4) M/mm3 Hgb (12.0-16.0) gm/dl Hct (35-47) % MCV (78-100) fl MCH (26-32) pg MCHC (32-36) g/dl RDW (11.5-14.0) % Plt Count (150-450) K/mm3 MPV (7.5-11.0) fl Gran % (36.0-66.0) % Eos # (Auto) (0-0.5) Absolute Lymphs (auto) (1.0-4.6) Absolute Monos (auto) (0.0-1.3) Lymphocytes % (24.0-44.0) % Monocytes % (0.0-12.0) % Eosinophils % (0.00-5.0) % Basophils % (0.0-0.4) % Absolute Granulocytes (1.4-6.9) Basophils # (0-0.4) Sodium (137-145) mmol/L Potassium (3.5-5.1) mmol/L Chloride (98-107) mmol/L Carbon Dioxide (22-30) mmol/L Anion Gap (5-15) MEQ/L BUN (7-17) mg/dL Creatinine (0.52-1.04) mg/dL Estimated GFR ML/MIN Glucose (74-106) mg/dL POC Glucometer 97 (74 to 106) mg/dL Calcium (8.4-10.2) mg/dL Magnesium (1.6-2.3) mg/dL Total Bilirubin (0.2-1.3) mg/dL AST (14-36) U/L ALT (0-35) U/L Alkaline Phosphatase (38-126) U/L Troponin I < 0.012 < 0.012 (0.000-0.034) ng/mL NT-Pro-B Natriuret Pep (0-900) pg/mL Serum Total Protein (6.3-8.2) g/dL Albumin (3.5-5.0) g/dL Triglycerides (30-150) mg/dL Cholesterol (50-200) mg/dL LDL Cholesterol (30-100) mg/dL HDL Cholesterol (40-60) mg/dL Heart Disease Risk Ratio Urine Color (YELLOW) Urine Appearance (CLEAR) Urine pH (5-6) Ur Specific [place] (1.005-1.025) Urine Protein (Negative) Urine Ketones (NEGATIVE) Urine Blood (0-5) Marc/ul Urine Nitrite (NEGATIVE) Urine Bilirubin (NEGATIVE) Urine Urobilinogen (0-1) mg/dL Ur Leukocyte Esterase (NEGATIVE) Urine WBC (Auto) (0-5) /HPF Urine RBC (Auto) (0-2) /HPF U Epithel Cells (Auto) (FEW) /HPF Urine Bacteria (Auto) (NEGATIVE) /HPF Urine Mucus (Auto) (NEGATIVE) /HPF Urine Culture Reflexed (NO) Urine Glucose (NEGATIVE) mg/dL Urine Opiates Level (NEGATIVE) Ur Methadone (NEGATIVE) Urine Barbiturates (NEGATIVE) Ur Phencyclidine (PCP) (NEGATIVE) Urine Amphetamine (NEGATIVE) U Benzodiazepine Level (NEGATIVE) Urine Cocaine (NEGATIVE) Urine Marijuana (THC) (NEGATIVE) Influenza Type A Ag (NEGATIVE) Influenza Type B Ag (NEGATIVE) RSV (PCR) (Negative) SARS-CoV-2 (PCR) (NEGATIVE) 07/15/20 07/15/20 07/15/20 Range/Units 02:05 04:45 04:45 WBC (4.0-10.5) K/mm3 RBC (4.1-5.4) M/mm3 Hgb (12.0-16.0) gm/dl Hct (35-47) % MCV (78-100) fl MCH (26-32) pg MCHC (32-36) g/dl RDW (11.5-14.0) % Plt Count (150-450) K/mm3 MPV (7.5-11.0) fl Gran % (36.0-66.0) % Eos # (Auto) (0-0.5) Absolute Lymphs (auto) (1.0-4.6) Absolute Monos (auto) (0.0-1.3) Lymphocytes % (24.0-44.0) % Monocytes % (0.0-12.0) % Eosinophils % (0.00-5.0) % Basophils % (0.0-0.4) % Absolute Granulocytes (1.4-6.9) Basophils # (0-0.4) Sodium (137-145) mmol/L Potassium (3.5-5.1) mmol/L Chloride (98-107) mmol/L Carbon Dioxide (22-30) mmol/L Anion Gap (5-15) MEQ/L BUN (7-17) mg/dL Creatinine (0.52-1.04) mg/dL Estimated GFR ML/MIN Glucose (74-106) mg/dL POC Glucometer (74 to 106) mg/dL Calcium (8.4-10.2) mg/dL Magnesium (1.6-2.3) mg/dL Total Bilirubin (0.2-1.3) mg/dL AST (14-36) U/L ALT (0-35) U/L Alkaline Phosphatase (38-126) U/L Troponin I < 0.012 < 0.012 (0.000-0.034) ng/mL NT-Pro-B Natriuret Pep (0-900) pg/mL Serum Total Protein (6.3-8.2) g/dL Albumin (3.5-5.0) g/dL Triglycerides 142 (30-150) mg/dL Cholesterol 205 H (50-200) mg/dL LDL Cholesterol 144 H (30-100) mg/dL HDL Cholesterol 39 L (40-60) mg/dL Heart Disease Risk Ratio 5.3 Urine Color (YELLOW) Urine Appearance (CLEAR) Urine pH (5-6) Ur Specific [place] (1.005-1.025) Urine Protein (Negative) Urine Ketones (NEGATIVE) Urine Blood (0-5) Marc/ul Urine Nitrite (NEGATIVE) Urine Bilirubin (NEGATIVE) Urine Urobilinogen (0-1) mg/dL Ur Leukocyte Esterase (NEGATIVE) Urine WBC (Auto) (0-5) /HPF Urine RBC (Auto) (0-2) /HPF U Epithel Cells (Auto) (FEW) /HPF Urine Bacteria (Auto) (NEGATIVE) /HPF Urine Mucus (Auto) (NEGATIVE) /HPF Urine Culture Reflexed (NO) Urine Glucose (NEGATIVE) mg/dL Urine Opiates Level (NEGATIVE) Ur Methadone (NEGATIVE) Urine Barbiturates (NEGATIVE) Ur Phencyclidine (PCP) (NEGATIVE) Urine Amphetamine (NEGATIVE) U Benzodiazepine Level (NEGATIVE) Urine Cocaine (NEGATIVE) Urine Marijuana (THC) (NEGATIVE) Influenza Type A Ag (NEGATIVE) Influenza Type B Ag (NEGATIVE) RSV (PCR) (Negative) SARS-CoV-2 (PCR) (NEGATIVE) 07/15/20 Range/Units 07:21 WBC (4.0-10.5) K/mm3 RBC (4.1-5.4) M/mm3 Hgb (12.0-16.0) gm/dl Hct (35-47) % MCV (78-100) fl MCH (26-32) pg MCHC (32-36) g/dl RDW (11.5-14.0) % Plt Count (150-450) K/mm3 MPV (7.5-11.0) fl Gran % (36.0-66.0) % Eos # (Auto) (0-0.5) Absolute Lymphs (auto) (1.0-4.6) Absolute Monos (auto) (0.0-1.3) Lymphocytes % (24.0-44.0) % Monocytes % (0.0-12.0) % Eosinophils % (0.00-5.0) % Basophils % (0.0-0.4) % Absolute Granulocytes (1.4-6.9) Basophils # (0-0.4) Sodium (137-145) mmol/L Potassium (3.5-5.1) mmol/L Chloride (98-107) mmol/L Carbon Dioxide (22-30) mmol/L Anion Gap (5-15) MEQ/L BUN (7-17) mg/dL Creatinine (0.52-1.04) mg/dL Estimated GFR ML/MIN Glucose (74-106) mg/dL POC Glucometer 115 H (74 to 106) mg/dL Calcium (8.4-10.2) mg/dL Magnesium (1.6-2.3) mg/dL Total Bilirubin (0.2-1.3) mg/dL AST (14-36) U/L ALT (0-35) U/L Alkaline Phosphatase (38-126) U/L Troponin I (0.000-0.034) ng/mL NT-Pro-B Natriuret Pep (0-900) pg/mL Serum Total Protein (6.3-8.2) g/dL Albumin (3.5-5.0) g/dL Triglycerides (30-150) mg/dL Cholesterol (50-200) mg/dL LDL Cholesterol (30-100) mg/dL HDL Cholesterol (40-60) mg/dL Heart Disease Risk Ratio Urine Color (YELLOW) Urine Appearance (CLEAR) Urine pH (5-6) Ur Specific [place] (1.005-1.025) Urine Protein (Negative) Urine Ketones (NEGATIVE) Urine Blood (0-5) Marc/ul Urine Nitrite (NEGATIVE) Urine Bilirubin (NEGATIVE) Urine Urobilinogen (0-1) mg/dL Ur Leukocyte Esterase (NEGATIVE) Urine WBC (Auto) (0-5) /HPF Urine RBC (Auto) (0-2) /HPF U Epithel Cells (Auto) (FEW) /HPF Urine Bacteria (Auto) (NEGATIVE) /HPF Urine Mucus (Auto) (NEGATIVE) /HPF Urine Culture Reflexed (NO) Urine Glucose (NEGATIVE) mg/dL Urine Opiates Level (NEGATIVE) Ur Methadone (NEGATIVE) Urine Barbiturates (NEGATIVE) Ur Phencyclidine (PCP) (NEGATIVE) Urine Amphetamine (NEGATIVE) U Benzodiazepine Level (NEGATIVE) Urine Cocaine (NEGATIVE) Urine Marijuana (THC) (NEGATIVE) Influenza Type A Ag (NEGATIVE) Influenza Type B Ag (NEGATIVE) RSV (PCR) (Negative) SARS-CoV-2 (PCR) (NEGATIVE) Accuchecks Date 07/15/20 Time 07:42 - Radiology Impressions Radiology Exams & Impressions: Radiology Procedures Category Date Time Status CHEST 1 VIEW (PORTABLE) Stat Exams 07/14/20 16:47 Completed - Other Procedures and Tests Respiratory Therapy 07/14/20 21:38 Oxygen NASAL CANNULA 2 lpm 07/14/20 21:39 BiPap/CPAP ROUTINE Respiratory Therapy Assessment DAILY 07/16/20 05:00 EKG DAILY 07/17/20 05:00 EKG DAILY 07/18/20 05:00 EKG DAILY Assessment/Plan (1) Chest pain Current Visit: Yes Status: Acute Assessment & Plan: no acute changes on EKG, IN ruled out but multiple risk factors. patient reports statin intolerance so recently started on zetia by PA with Rikki, on aspirin therapy as well as imdur. will consult rikki Code(s): R07.9 - CHEST PAIN, UNSPECIFIED (2) COPD (chronic obstructive pulmonary disease) Current Visit: Yes Status: Acute Assessment & Plan: stable (3) Chronic hypoxemic respiratory failure Current Visit: Yes Status: Acute (4) DM type 2 (diabetes mellitus, type 2) Current Visit: Yes Status: Acute
[2020-07-15] MEDS: NEURONTIN 300 MG PO SCH ×2 (10:03→15:33)
[2020-07-15] MEDS ORDERED: Nitrostat 0.4 MG Tablet SL PRN (10:45)
[2020-07-15] MEDS ORDERED: Zetia 10 MG PO SCH (11:00)
[2020-07-15] MEDS ORDERED: Imdur 30 MG PO SCH (11:00)
[2020-07-15] MEDS ORDERED: SYNTHROID 50 MCG PO SCH (11:00)
[2020-07-15] MEDS ORDERED: Cozaar 50 MG PO SCH (11:00)
[2020-07-15] MEDS ORDERED: Protonix 40MG Tablet PO SCH (11:00)
[2020-07-15] MEDS ORDERED: hydroDIURIL 25 MG PO SCH (11:00)
[2020-07-15] MEDS ORDERED: ECOTRIN 81 MG PO SCH (11:00)
[2020-07-15 16:27] VITALS: BP 118/61; PULSE 72; O2SAT 94
[2020-07-16] MEDS ORDERED: NON-FORMULARY ITEM (Losartan/Hydrochlorothiazide [Losartan-Hctz 50-12.5 Mg Tab] 1 EACH) PO SCH (10:00)
[2020-07-16] MEDS ORDERED: NON-FORMULARY ITEM (Levothyroxine Sodium [Levothyroxine] 50 MCG) PO SCH (10:00)
== END 2020-07-15 18:16 | disposition home or self-care (01) ==
LOC: ED 16:07 → MED SURG 20:16
PROVIDERS: ADMIT Family Medicine; ATTEND Family Medicine
DX: R07.9 Chest pain, unspecified (principal); J44.9 Chronic obstructive pulmonary disease, unspecified; Z99.81 Dependence on supplemental oxygen; J96.11 Chronic respiratory failure with hypoxia; Z79.899 Other long term (current) drug therapy; I10 Essential (primary) hypertension; E11.9 Type 2 diabetes mellitus without complications; E78.00 Pure hypercholesterolemia, unspecified; E03.9 Hypothyroidism, unspecified; E78.5 Hyperlipidemia, unspecified; K21.9 Gastro-esophageal reflux disease without esophagitis; Z20.828 Contact with and (suspected) exposure to other viral communicable diseases
CPT/HCPCS: 0241U; 36000; 36415; 71045; 80053; 80061; 80307; 81001; 82947; 83721; 83735; 83880; 84436; 84443; 84484; 85025; 93005; 93041; 93268; 94640; 94660; 94760; 99285; G0378; Q3014; A9270-GY

== ENCOUNTER 2020-08-14 05:57 | Day surgery (SDC) | payer MEDICARE ==
[2020-08-14] MEDS ORDERED: Lactated Ringers 1,000 ML IV SCH (06:00)
[2020-08-14] MEDS ORDERED: DIPRIVAN 200 MG/20 ML IV ONE ×2 (07:21→07:43)
[2020-08-14 08:32] VITALS: O2SAT 97
[2020-08-14 08:53] VITALS: BP 124/62; PULSE 73
--- NOTE | 2020-08-14 08:58 | OP ---
SURGERY DATE/TIME: 08/14/2020 0733 PREOPERATIVE DIAGNOSES: 1) Chest pain. 2) Persistent gastroesophageal reflux disease. POSTOPERATIVE DIAGNOSIS: Delayed gastric emptying. PROCEDURE: EGD. SURGEON: Lui Olivas M.D. ANESTHESIA: MAC by Jose Mejia CRNA. ESTIMATED BLOOD LOSS: None. SPECIMENS: None. DESCRIPTION OF PROCEDURE: After informed written consent was obtained, the patient was taken to the endoscopy suite. She was placed in the left lateral decubitus position and a bite block was inserted. The anesthesia was titrated to the desired level of consciousness and the endoscope was inserted into the posterior oropharynx. Under direct visualization the esophagus is easily traversed. There was a normal mucosal appearance of the esophagus with a normal gastroesophageal junction. Upon entering the gastric cavity there was significant partially digested food present in the gastric cavity. There were no obvious ulcers or areas of bleeding. The pylorus was traversed and the duodenum likewise appeared normal. Again, the gastric cavity inspection was limited due to significant partially digested food bolus present throughout most of the gastric cavity suggestive of delayed gastric emptying. The patient has known diabetes and other risk factors. The scope was removed and she was taken to the recovery room in good condition. I discussed gastroparesis and low residue diet with her and to continue the proton pump inhibitor therapy at this time.
== END 2020-08-14 09:25 | disposition home or self-care (01) ==
LOC: SDC 05:57
PROVIDERS: ATTEND Family Medicine
DX: K30 Functional dyspepsia (principal); R07.9 Chest pain, unspecified; K21.9 Gastro-esophageal reflux disease without esophagitis; I10 Essential (primary) hypertension; E11.9 Type 2 diabetes mellitus without complications; Z86.79 Personal history of other diseases of the circulatory system; Z79.4 Long term (current) use of insulin; Z79.899 Other long term (current) drug therapy
CPT/HCPCS: 82947; J2704

== ENCOUNTER 2022-07-19 15:59 | Emergency (ER) | payer MEDICARE, MEDICAID, SELFPAY ==
[2022-07-19] MEDS ORDERED: Zofran 4 MG/2 ML VIAL IV ONE (17:20)
[2022-07-19] MEDS ORDERED: MORPHINE SULFATE 2 MG INJ IV ONE (17:20)
[2022-07-19] MEDS ORDERED: Sodium Chloride 0.9% 1000 ML 1,000 ML IV SCH (17:30)
[2022-07-19 17:32] VITALS: O2SAT 98
[2022-07-19] MEDS ORDERED: MORPHINE SULFATE 2 MG INJ ONE (17:52)
[2022-07-19] MEDS ORDERED: Sodium Chloride 0.9% 1000 ML 1,000 ML ONE (17:52)
[2022-07-19] MEDS ORDERED: Zofran 4 MG/2 ML VIAL ONE (17:52)
[2022-07-19 18:01] LABS: Absolute Neutrophil Ct (ANC) 3.97 x10^3/uL (1.4-6.9); Basophil (Absolute #) 0.08 x10^3/uL (0-0.4); Eosinophil % 3.4 % (0.00-5.0); Eosinophil (Absolute #) 0.26 x10^3/uL (0-0.5); Hematocrit 39.2 % (35-47); Hemoglobin 12.6 g/dL (12.0-16.0); IMMATURE GRAN # 0.03 x10^3u/L (0.00-0.03); IMMATURE GRAN % 0.4 % (0.00-0.4); Lymphocyte (Absolute #) 2.47 x10^3/uL (1.0-4.6); Lymphocytes % 32.3 % (24.0-44.0); Mean Cell Volume 84.5 fL (78-100); Mean Corpuscular Hemoglobin 27.2 pg (26-32); Mean Corpuscular Hgb Concent. 32.1 g/dL (32-36); Monocyte (Absolute #) 0.84 x10^3/uL (0.0-1.3); Neutrophil % 51.9 % (36.0-66.0); Platelet Count 256 x10^3/uL (150-450); Red Blood Count 4.64 x10^6/uL (4.1-5.4); Red Cell Distribution Width 14.2 % (11.5-14.0); White Blood Count 7.7 x10^3/uL (4.0-10.5)
[2022-07-19 18:16] LABS: ALBUMIN 4.1 g/dL (3.5-5.0); ALKALINE PHOSPHATASE 121 U/L (38-126); BLOOD UREA NITROGEN 12 mg/dL (7-17); CHLORIDE 102 mmol/L (98-107); Calcium 9.1 mg/dL (8.4-10.2); Carbon Dioxide 29 mmol/L (22-30); EST GLOMERULAR FILTRATION RATE > 60.0 ML/MIN; Glucose 111 mg/dL (74-106); Potassium 3.5 mmol/L (3.5-5.1); SGOT/AST 25 U/L (14-36); SGPT/ALT 23 U/L (0-35); SODIUM 140 mmol/L (137-145); Total Protein 7.1 g/dL (6.3-8.2)
[2022-07-19 20:03] LABS: Appearance Clear (Clear); Bacteria None Seen /HPF (None Seen); Bilirubin Negative (Negative); Blood Negative (Negative); Epithelial Cells Rare /HPF (None Seen); Glucose, Urine >=1000 mg/dL (Negative); Hyaline Casts NONE SEEN /LPF (0-2); Ketones Negative (Negative); Leukocyte Esterase Negative (Negative); Nitrite Negative (Negative); Protein,Urine Dip Negative (Negative); RBC 0-2 /HPF (0-5); Specific Gravity >=1.030 (1.005-1.030)
[2022-07-19 20:13] LABS: ADD URINE CULTURE? NO (NO)
--- NOTE | 2022-07-19 20:39 | ERPHSYRPT ---
- History of Present Illness Time Seen by Provider: 07/19/22 16:30 Historian: patient Exam Limitations: no limitations Patient Subjective Stated Complaint: Left leg pain Triage Nursing Assessment: Patient brought back to ED per w/c and transferred to bed per self. Patient wears home O2 at 3 liters per N/C. Patient states around 1130 she placed her grandson in his swing and all of a sudden had a sharp pain in her groin that went up. Patient complains of pain to entire left leg 9/10. No redness, swelling or warmth noted to extremity. Physician History: Patient is a 62-year-old female presents to our ED for evaluation of pain to her left groin. Pain occurred acutely shot up into her left lower abdomen and then down her left leg. Pain rated 9 out of 10. No trauma. No fever. No nausea vomiting or diaphoresis. Symptoms are moderate in intensity currently. Patient voices no other complaints or concerns at this time. Portions of this note were created with voice recognition technology. There may be grammatical, spelling, punctuation or sound alike errors Timing/Duration: today Activities at Onset: none Quality: aching Abdominal Pain Onset Location: other (Pain left lower abdomen down into the left leg) Pain Radiation: other (Left lower extremity) Severity of Pain-Max: moderate Severity of Pain-Current: mild Modifying Factors: Improves With: other (To palpation at the left proximal groin. Patient concerned for DVT as she has had DVT in the past.) Associated Symptoms: denies symptoms Previous symptoms: no prior history Allergies/Adverse Reactions: niacin Allergy (Severe, Verified 07/19/22 16:09) swelling, itching, throat closing Home Medications: Aspirin EC 81 mg [Ecotrin 81 mg] 81 mg PO DAILY 09/15/18 [History] Gabapentin 300 mg PO TID 09/15/18 [History] Ipratropium/Albuterol Sulfate [Iprat-Albut 0.5-3(2.5) mg/3 ml] 3 ml IH QID PRN 09/15/18 [History] Losartan/Hydrochlorothiazide [Losartan-Hctz 50-12.5 mg Tab] 1 each PO DAILY 09/15/18 [History] Albuterol Sulfate [Ventolin Hfa] 18 gm IH UD 07/14/20 [History] Ezetimibe 10 mg [Zetia 10 MG] 10 mg PO DAILY 07/14/20 [History] Fluticasone/Umeclidin/Vilanter [Trelegy Ellipta 100-62.5-25] 1 each IH DAILY 07/14/20 [History] Levothyroxine Sodium [Levothyroxine] 50 mcg PO DAILY 07/14/20 [History] Nitroglycerin 0.4 mg Tablet [Nitrostat 0.4 MG Tablet] 0.4 mg SL Q5MIN PRN MR X 3 PRN 07/14/20 [History] Trazodone HCl 100 mg PO HS 07/14/20 [History] Dapagliflozin/Metformin HCl [Xigduo Xr 10 mg-1,000 mg Tab] 1 each PO DAILY 07/31/20 [History] Hx Tetanus, Diphtheria Vaccination/Date Given: Yes Hx Influenza Vaccination/Date Given: No Hx Pneumococcal Vaccination/Date Given: Yes Travel Risk - International Travel Have you traveled outside of the country in past 3 weeks: No - Coronavirus Screening Are you exhibiting any of the following symptoms?: No Close contact with a COVID-19 positive Pt in past 14-21 Days: No - Vaccine Status Have you recieved a Covid-19 vaccination: Yes Biostatistics Director: Moderna - Vaccination Dates Date of 2cond Vaccination (if applicable): will have 07/17/2020 - Review of Systems Constitutional: No Symptoms, No Fever, No Chills Eyes: No Symptoms Ears, Nose, & Throat: No Symptoms Respiratory: No Symptoms, No Cough, No Dyspnea Cardiac: No Symptoms, No Chest Pain, No Edema, No Syncope Abdominal/Gastrointestinal: No Symptoms, No Abdominal Pain, No Nausea, No Vomiting, No Diarrhea Genitourinary Symptoms: No Symptoms, No Dysuria Musculoskeletal: No Symptoms, No Back Pain, No Neck Pain Skin: No Symptoms, No Rash Neurological: No Symptoms, No Dizziness, No Focal Weakness, No Sensory Changes Psychological: No Symptoms Endocrine: No Symptoms Hematologic/Lymphatic: No Symptoms Immunological/Allergic: No Symptoms All Other Systems: Reviewed and Negative - Past Medical History Pertinent Past Medical History: Yes Neurological History: Seizures ENT History: No Pertinent History Cardiac History: High Cholesterol, Hypertension Respiratory History: COPD Endocrine Medical History: Diabetes Type II, Hypothyroidism Musculoskeletal History: Arthritis GI Medical History: Esophageal Disorder, GERD Psycho-Social History: Anxiety, Depression Female Reproductive Disorders: No Pertinent History - Past Surgical History Past Surgical History: Yes Female Surgical History: Tubal Ligation Other Surgical History: vein stripping in right leg - Social History Smoking Status: Former smoker Exposure to second hand smoke: Yes Drug Use: none Patient Lives Alone: No - Nursing Vital Signs Nursing Vital Signs: Initial Vital Signs Temperature 97.6 F 07/19/22 16:12 Pulse Rate 90 07/19/22 16:12 Respiratory Rate 18 07/19/22 16:12 O2 Sat by Pulse Oximetry 95 07/19/22 16:12 Pain Scale Pain Intensity 7 - Physical Exam General Appearance: no apparent distress, alert Eye Exam: PERRL/EOMI, eyes nml inspection Ears, Nose, Throat Exam: normal ENT inspection, pharynx normal, moist mucous membranes Neck Exam: normal inspection, non-tender, supple, full range of motion Respiratory Exam: normal breath sounds, lungs clear, airway intact, No respiratory distress Cardiovascular Exam: regular rate/rhythm, normal heart sounds Gastrointestinal/Abdomen Exam: soft, No tenderness, No mass Back Exam: normal inspection, normal range of motion, No CVA tenderness, No vertebral tenderness Extremity Exam: normal inspection, normal range of motion, pelvis stable Neurologic Exam: alert, oriented x 3, cooperative, normal mood/affect, sensation nml, No motor deficits Skin Exam: normal color, warm, dry, other (Left lower extremity neurovascular tact distally. Compartments are soft. Cap refill less than 2 seconds.) SpO2 Interpretation: normal SpO2: 98 O2 Delivery: Room Air - Course Nursing assessment & vital signs reviewed: Yes - CT Exams Abdomen/Pelvis CT Interpretation: Tele-radiologist Report (No comps. Very minimal aortic atherosclerotic disease otherwise normal CTA abdomen pelvis with bilateral runoffs. Incidental fatty liver.) - Radiology Ultrasound Exam Venous Lower Extremity Ultrasound: tele radiology report (Per senior loan processor no DVT.) Ordered Tests: Active Orders 24 hr Category Date Time Status IV Insertion STAT Care 07/19/22 17:20 Active CTA ABD/PEL W AND/OR W/O CONTR [CT] Stat Exams 07/19/22 17:52 Taken VENOUS UNILAT/LIMITED EXTREMIT [US] Stat Exams 07/19/22 17:20 Taken CBC W DIFF Stat Lab 07/19/22 17:20 Completed CMP Stat Lab 07/19/22 18:03 Completed TROPONIN Q4H Lab 07/19/22 18:03 Completed TROPONIN Q4H Lab 07/19/22 18:03 Received TROPONIN Q4H Lab 07/20/22 01:30 Ordered UA W/RFX UR CULTURE Stat Lab 07/19/22 19:54 Completed Medication Summary Generic Name Dose Route Start Last Admin Trade Name Frerufina PRN Reason Stop Dose Admin Sodium Chloride 1,000 mls @ 100 mls/hr 07/19/22 17:30 07/19/22 17:54 Sodium Chloride 0.9% 1000 Ml IV 08/18/22 17:29 100 mls/hr .Q10H MANJULA Administration Discontinued Medications Generic Name Dose Route Start Last Admin Trade Name Freq PRN Reason Stop Dose Admin Morphine Sulfate 2 mg 07/19/22 17:20 07/19/22 17:54 Morphine Sulfate 2 Mg/Ml Inj IV 07/19/22 17:21 2 mg STAT ONE Administration Morphine Sulfate Confirm 07/19/22 17:52 Morphine Sulfate 2 Mg/Ml Inj Administered 07/19/22 17:53 Dose 2 mg .ROUTE .STK-MED ONE Ondansetron HCl 4 mg 07/19/22 17:20 07/19/22 17:53 Ondansetron Hcl 4 Mg/2 Ml Vial IV 07/19/22 17:21 4 mg STAT ONE Administration Ondansetron HCl Confirm 07/19/22 17:52 Ondansetron Hcl 4 Mg/2 Ml Vial Administered 07/19/22 17:53 Dose 4 mg .ROUTE .STK-MED ONE Lab/Rad Data: Laboratory Result Diagrams 07/19/22 17:20 07/19/22 18:03 Laboratory Results 07/19/22 07/19/22 07/19/22 Range/Units 19:54 18:03 18:03 WBC (4.0-10.5) x10^3/uL RBC (4.1-5.4) x10^6/uL Hgb (12.0-16.0) g/dL Hct (35-47) % MCV (78-100) fL MCH (26-32) pg MCHC (32-36) g/dL RDW (11.5-14.0) % Plt Count (150-450) x10^3/uL MPV (7.5-11.0) fL Gran % (36.0-66.0) % Immature Gran % (Auto) (0.00-0.4) % Nucleat RBC Rel Count (0.00-0.1) % Eos # (Auto) (0-0.5) x10^3/uL Immature Gran # (Auto) (0.00-0.03) x10^3u/L Absolute Lymphs (auto) (1.0-4.6) x10^3/uL Absolute Monos (auto) (0.0-1.3) x10^3/uL Absolute Nucleated RBC (0.00-0.01) x10^3u/L Lymphocytes % (24.0-44.0) % Monocytes % (0.0-12.0) % Eosinophils % (0.00-5.0) % Basophils % (0.0-0.4) % Absolute Granulocytes (1.4-6.9) x10^3/uL Basophils # (0-0.4) x10^3/uL Sodium 140 (137-145) mmol/L Potassium 3.5 (3.5-5.1) mmol/L Chloride 102 (98-107) mmol/L Carbon Dioxide 29 (22-30) mmol/L Anion Gap 13.0 (5-15) MEQ/L BUN 12 (7-17) mg/dL Creatinine 0.90 (0.52-1.04) mg/dL Estimated GFR > 60.0 ML/MIN Glucose 111 H (74-106) mg/dL Calcium 9.1 (8.4-10.2) mg/dL Total Bilirubin 0.60 (0.2-1.3) mg/dL AST 25 (14-36) U/L ALT 23 (0-35) U/L Alkaline Phosphatase 121 (38-126) U/L Troponin I < 0.012 (0.000-0.034) ng/mL Serum Total Protein 7.1 (6.3-8.2) g/dL Albumin 4.1 (3.5-5.0) g/dL Urine Color Yellow (Yellow) Urine Appearance Clear (Clear) Urine pH 5.0 (4.6-8.0) Ur Specific [place] >=1.030 A (1.005-1.030) Urine Protein Negative (Negative) Urine Glucose (UA) >=1000 A (Negative) mg/dL Urine Ketones Negative (Negative) Urine Blood Negative (Negative) Urine Nitrite Negative (Negative) Urine Bilirubin Negative (Negative) Urine Urobilinogen 1.0 A (0.2) mg/dL Ur Leukocyte Esterase Negative (Negative) U Hyaline Cast (Auto) NONE SEEN (0-2) /LPF Urine Microscopic RBC 0-2 (0-5) /HPF Urine Microscopic WBC 3-5 (0-5) /HPF Ur Epithelial Cells Rare (None Seen) /HPF Urine Bacteria None Seen (None Seen) /HPF Urine Culture Reflexed NO (NO) 07/19/22 Range/Units 17:20 WBC 7.7 (4.0-10.5) x10^3/uL RBC 4.64 (4.1-5.4) x10^6/uL Hgb 12.6 (12.0-16.0) g/dL Hct 39.2 (35-47) % MCV 84.5 (78-100) fL MCH 27.2 (26-32) pg MCHC 32.1 (32-36) g/dL RDW 14.2 H (11.5-14.0) % Plt Count 256 (150-450) x10^3/uL MPV 10.0 (7.5-11.0) fL Gran % 51.9 (36.0-66.0) % Immature Gran % (Auto) 0.4 (0.00-0.4) % Nucleat RBC Rel Count 0.0 (0.00-0.1) % Eos # (Auto) 0.26 (0-0.5) x10^3/uL Immature Gran # (Auto) 0.03 (0.00-0.03) x10^3u/L Absolute Lymphs (auto) 2.47 (1.0-4.6) x10^3/uL Absolute Monos (auto) 0.84 (0.0-1.3) x10^3/uL Absolute Nucleated RBC 0.00 (0.00-0.01) x10^3u/L Lymphocytes % 32.3 (24.0-44.0) % Monocytes % 11.0 (0.0-12.0) % Eosinophils % 3.4 (0.00-5.0) % Basophils % 1.0 (0.0-0.4) % Absolute Granulocytes 3.97 (1.4-6.9) x10^3/uL Basophils # 0.08 (0-0.4) x10^3/uL Sodium (137-145) mmol/L Potassium (3.5-5.1) mmol/L Chloride (98-107) mmol/L Carbon Dioxide (22-30) mmol/L Anion Gap (5-15) MEQ/L BUN (7-17) mg/dL Creatinine (0.52-1.04) mg/dL Estimated GFR ML/MIN Glucose (74-106) mg/dL Calcium (8.4-10.2) mg/dL Total Bilirubin (0.2-1.3) mg/dL AST (14-36) U/L ALT (0-35) U/L Alkaline Phosphatase (38-126) U/L Troponin I (0.000-0.034) ng/mL Serum Total Protein (6.3-8.2) g/dL Albumin (3.5-5.0) g/dL Urine Color (Yellow) Urine Appearance (Clear) Urine pH (4.6-8.0) Ur Specific [place] (1.005-1.030) Urine Protein (Negative) Urine Glucose (UA) (Negative) mg/dL Urine Ketones (Negative) Urine Blood (Negative) Urine Nitrite (Negative) Urine Bilirubin (Negative) Urine Urobilinogen (0.2) mg/dL Ur Leukocyte Esterase (Negative) U Hyaline Cast (Auto) (0-2) /LPF Urine Microscopic RBC (0-5) /HPF Urine Microscopic WBC (0-5) /HPF Ur Epithelial Cells (None Seen) /HPF Urine Bacteria (None Seen) /HPF Urine Culture Reflexed (NO) - Progress Progress: improved Progress Note: 62-year-old female presents to our ED with acute onset left groin pain that shot into her left lower abdomen and down her leg. Patient has a history of DVT was concerned that she may have developed a DVT. On exam patient's involved extremities neurovascular intact distally. Patient has some tenderness at the medial aspect of her left groin area. Test include CTA with runoffs. No significant findings observed. No clots or compromise in circulation. There is some aortic atherosclerotic disease observed. Incidental fatty liver. Ultrasound left lower extremity negative for DVT. CBC CMP essentially nonremarkable. Troponin negative. Urinalysis negative. Glucosuria observed in UA. Patient is comfortable. Patient that she is ready for discharge. Will discharge home. Patient agrees to follow-up with her primary care doctor within 48 hours for reevaluation. Portions of this note were created with voice recognition technology. There may be grammatical, spelling, punctuation or sound alike errors Complexity of problem addressed is moderate new diagnosis with uncertain prognosis. No critical care time Complexity of data reviewed and analyzed is moderate. Test ordered. Test including urinalysis reviewed and analyzed by Dr. Medley. Risk of complication and or risk morbidity/mortality of patient management is high. Patient received IV controlled medication, morphine for pain control. Zofran for nausea. Normal saline administered as well. A prescription for Toradol was forwarded to patient's pharmacy. Will discharge home. Patient agrees to follow-up with primary care doctor within 48 hours. Plan of care established via shared decision making. No social determinants of health present to preclude follow-up Vital stable. 07/19/22 20:44 0 Counseled pt/family regarding: lab results, diagnosis - Departure Departure Disposition: Home Clinical Impression: Groin pain, Glucosuria, Fatty liver, Atherosclerotic cardiovascular disease Condition: Stable Critical Care Time: No Referrals: ESTEVAN GALDAMEZ MD [Primary Care Provider] - Follow up/PCP as directed Additional Instructions: Discharge/Care Plan ASASHIRLEY M was seen on 07/19/22 in the Emergency Room. The patient was counseled regarding Diagnosis,Lab results, Imaging studies, need for follow up and when to return to the Emergency Room. Prescriptions given: Discharge Note I have spoken with the patient and/or caregivers. I have explained the patient's condition, diagnosis and treatment plan based on the information available to me at this time. I have answered the patient's and/or caregiver's questions and addressed any concerns. The patient and/or caregivers have as good understanding of the patient's diagnosis, condition and treatment plan as can be expected at this point. The vital signs have been stable. The patient's condition is stable and appropriate for discharge from the emergency department. The patient will pursue further outpatient evaluation with the primary care physician or other designated or consulting physician as outlined in the discharge instructions. The patient and/or caregivers are agreeable to this plan of care and follow-up instructions have been explained in detail. The patient and/or caregivers have received these instruction. The patient/and or caregivers are aware that any significant change in condition or worsening of symptoms should prompt an immediate return to this or the closest emergency department or call 911. Prescriptions: Ketorolac Trometh 10 mg Tab [TORAdol 10 MG TABLET] 10 mg PO TID 5 Days #15 tablet
[2022-07-19 21:09] VITALS: BP 123/64; PULSE 68
--- NOTE | 2022-07-20 08:35 | XRAY ---
Indication: Left leg pain. Two-dimensional sonogram and color Doppler imaging of the major venous vessels of the left leg performed. Comparison: None No thrombus seen in the examined deep venous vessels of the left leg including greater saphenous vein. Veins demonstrate normal compressibility. Venous waveforms are normal with and without augmentation. Impression: Left leg negative for DVT. Comment: Preliminary report was given.
--- NOTE | 2022-07-20 08:41 | XRAY ---
Indication: Left leg pain. Conventional contrast enhanced CTA abdomen/pelvis with bilateral runoff performed using 125 cc Isovue 370 contrast. 2-D sagittal and coronal reformatted images obtained. Additional 3-D reformatted images obtained using a separate workstation. Comparison: None Abdominal aorta is normal in course and caliber with very minimal arteriosclerotic calcifications distally. Lesser degree arteriosclerotic calcifications at origins of both main renal arteries without critical stenosis or post stenotic dilatation. Widely patent branching celiac, superior mesenteric, and inferior arteries. Pelvis demonstrates minimal arteriosclerotic calcifications in both internal iliac arteries without critical stenosis/obstruction. Left and right leg runoff demonstrates widely patent common iliac, external iliac, common femoral, deep femoral, superficial femoral, popliteal, peroneal, anterior tibial, and posterior tibial arteries. Lung bases demonstrates minimal dependent atelectasis. Heart not enlarged. Noncontrasted stomach and bowel loops appear nonobstructed. No free fluid/air. Mild diffuse fatty liver. Remaining liver, gallbladder, pancreas, spleen, adrenal glands, kidneys, ureters, bladder, and uterus are unremarkable. No pathologic retroperitoneal lymphadenopathy. Osseous structures intact with mild/moderate degenerative changes of the visualized thoracolumbar spine and both knees. Impression: 1. Minimal arteriosclerotic disease distal aorta, both main renal arteries, and both internal iliac arteries without critical stenosis/obstruction. 2. Remaining CTA abdomen/pelvis with bilateral runoff is normal. 3. Incidental fatty liver and chronic bony findings.
== END 2022-07-19 21:23 | disposition home or self-care (01) ==
LOC: ED 15:59
DX: R10.2 Pelvic and perineal pain (principal); R81 Glycosuria; K76.0 Fatty (change of) liver, not elsewhere classified; I25.10 Atherosclerotic heart disease of native coronary artery without angina pectoris; E78.5 Hyperlipidemia, unspecified; I10 Essential (primary) hypertension; E11.9 Type 2 diabetes mellitus without complications; Z79.84 Long term (current) use of oral hypoglycemic drugs; Z79.899 Other long term (current) drug therapy; M79.605 Pain in left leg
CPT/HCPCS: 36000; 36415; 74174; 80053; 81001; 84484; 85025; 93971; 96374; 96375; 99284; J2270; J2405

== ENCOUNTER 2024-03-22 06:54 | Observation (INO) | payer MEDICARE ==
[2024-03-22] MEDS: NEURONTIN PO ONE (07:08)
[2024-03-22] MEDS: TYLENOL EXTRA STRENGTH 500 MG PO ONE (07:08)
[2024-03-22] MEDS: Decadron 4 MG PO ONE (07:08)
[2024-03-22] MEDS: Lactated Ringers 1,000 ML IV SCH (07:09)
[2024-03-22] MEDS: CEFAZOLIN 2 GM/100 ML NaCl 2 GM/100 ML IVPB IV SCH (07:09)
[2024-03-22 07:42] LABS: Absolute Neutrophil Ct (ANC) 5.95 x10^3/uL (1.56-6.13); BASOPHIL % 1.1 % (0.1-1.2); Basophil (Absolute #) 0.11 x10^3/uL (0.01-0.08); Eosinophil % 3.7 % (0.7-5.8); Eosinophil (Absolute #) 0.36 x10^3/uL (0.04-0.36); Hematocrit 43.3 % (34.1-44.9); Hemoglobin 14.6 g/dL (11.2-15.7); IMMATURE GRAN # 0.04 x10^3u/L (0.001-0.031); IMMATURE GRAN % 0.4 % (0.001-0.429); Lymphocyte (Absolute #) 2.38 x10^3/uL (1.18-3.74); Lymphocytes % 24.6 % (19.3-51.7); Mean Cell Volume 81.9 fL (79.4-94.8); Mean Corpuscular Hemoglobin 27.6 pg (25.6-32.2); Mean Corpuscular Hgb Concent. 33.7 g/dL (32.2-35.5); Mean Platelet Volume 10.3 fL (9.4-12.3); Monocyte (Absolute #) 0.83 x10^3/uL (0.24-0.86); Monocytes % 8.6 % (4.7-12.5); Neutrophil % 61.6 % (34.0-71.1); Platelet Count 322 x10^3/uL (182-369); Red Blood Count 5.29 x10^6/uL (3.93-5.22); Red Cell Distribution Width 12.8 % (11.7-14.4); White Blood Count 9.7 x10^3/uL (3.98-10.04)
[2024-03-22 07:59] LABS: ANION GAP 15.9 MEQ/L (5-15); Creatinine 1 1.02 mg/dL (0.52-1.04); EST GLOMERULAR FILTRATION RATE 62.2 ML/MIN; Potassium 3.6 mmol/L (3.5-5.1)
--- NOTE | 2024-03-22 12:13 | XRAY ---
Indication: Right breast cancer. 4 subcutaneous right periareolar injections performed totaling 0.9 mCi technetium 99 sulfur colloid. Delayed anterior and lateral planar images obtained. There a single focus of radiopharmaceutical activity identified in the axilla. Impression: Single focus of radiopharmaceutical activity in the axilla.
--- NOTE | 2024-03-22 12:15 | XRAY ---
Indication: Needle wire localization for ultrasound biopsy-proven 10:00 right breast ductal carcinoma. Informed consent obtained. Right breast was compressed in the LM plane using a alphanumeric grid paddle. Skin was cleansed with Betadine swabs. A 20-gauge Ghiatas needle was then percutaneously. Orthogonal right mammogram was obtained confirming overall good needle tip placement. Ultimately a hooked geri wire was then inserted into the needle with the outer needle removed. Repeat orthogonal digital mammograms obtained confirms overall good needle placement. Wire were secured and overlying bandage material applied. Patient was then taken to surgery. Impression: Technically successful needle wire localization 10:00 breast mass with mammotome clip. No immediate complications.
[2024-03-22] MEDS ORDERED: propofoL IV ONE (12:43)
[2024-03-22] MEDS ORDERED: Versed 2 MG/2 ML Injection ONE (12:43)
[2024-03-22] MEDS ORDERED: REMIFENTANIL HCL IV ONE (12:43)
[2024-03-22] MEDS ORDERED: Quelicin Fliptop 200 MG/10 ML ONE (12:43)
[2024-03-22] MEDS ORDERED: PHENYLEPHRINE HCL ONE (13:04)
[2024-03-22] MEDS ORDERED: PROVAYBLUE IV ONE (13:14)
[2024-03-22] MEDS ORDERED: Ephedrine Sulfate 50 MG/ML ONE (13:27)
[2024-03-22] MEDS ORDERED: Zofran 4 MG/2 ML VIAL ONE (14:33)
[2024-03-22] MEDS ORDERED: TORAdol 30 mg Injection ONE (14:33)
[2024-03-22] MEDS ORDERED: BRIDION 200MG/2ML IV ONE (14:33)
[2024-03-22] MEDS ORDERED: DILAUDID 2 MG INJECTION ONE (14:34)
--- NOTE | 2024-03-22 14:34 | XRAY ---
Indication: Surgical specimen following lumpectomy. "There are scattered areas of fibroglandular density." A single specimen radiograph demonstrates intact geri wire with the suspicious right breast breast mass and mammotome clip present. Findings were reported to the surgeon.
[2024-03-22] MEDS ORDERED: SUBLIMAZE 100 MCG/2 ML ONE (15:50)
[2024-03-22] MEDS ORDERED: Sodium Chloride 0.9% 500 ML 500 ML IV ONE (16:46)
[2024-03-22] MEDS: Sodium Chloride 0.9% 500 ML 500 ML IV ONE (16:53)
[2024-03-22] MEDS ORDERED: Zofran 4 MG/2 ML VIAL IV PRN (17:15)
[2024-03-22] MEDS ORDERED: Docusate Sodium 100 MG PO PRN (17:15)
[2024-03-22] MEDS ORDERED: NORCO 5/325 MG PO PRN (17:20)
[2024-03-22] MEDS ORDERED: MORPHINE SULFATE 4 MG INJ IV PRN (17:21)
[2024-03-22] MEDS ORDERED: MORPHINE SULFATE 2 MG INJ IV PRN (17:21)
[2024-03-22] MEDS ORDERED: DUONEB 0.5-3 MG/3 ml Neb IH PRN ×3 (17:55→18:21)
--- NOTE | 2024-03-22 18:10 | PCM.HP ---
History of Present Illness - Chief Complaint Chief Complaint: lumpectomy/breast cancer/hypotension Date: 03/22/24 History of Present Illness: is a 64 year old female with a pmhx of Right Breast Cancer (invasive ductal carcinoma grade 1- oncologist Dr. He) HTN, HLD, OA, fatty liver, YVONNE, hypothyroid, and gastric stenosis patient of Dr. Edward Stuart presents following a right breast lumpectomy. Patient was found to be hypotensive in PACU. Hospitalist team consulted for medical management and hypotension. - Review of Systems Constitutional: No Symptoms Eyes: No Symptoms Ears, Nose, & Throat: No Symptoms Respiratory: Short Of Breath Cardiac: No Symptoms Abdominal/Gastrointestinal: No Symptoms Genitourinary Symptoms: No Symptoms Musculoskeletal: No Symptoms Skin: Other (right breast surgical incision with dressing) Neurological: Dizziness Psychological: No Symptoms Endocrine: No Symptoms Hematologic/Lymphatic: No Symptoms Immunological/Allergic: No Symptoms Medications & Allergies Home Medications: Home Medication List Aspirin EC 81 mg [Ecotrin 81 mg] 81 mg PO DAILY 09/15/18 [History Confirmed 03/22/24] Gabapentin 300 mg PO BID 09/15/18 [History Confirmed 03/22/24] Ipratropium/Albuterol Sulfate [Iprat-Albut 0.5-3(2.5) mg/3 ml] 3 ml IH QID PRN 09/15/18 [History Confirmed 03/22/24] Losartan/Hydrochlorothiazide [Losartan-Hctz 50-12.5 mg Tab] 1 each PO DAILY 09/15/18 [History Confirmed 03/22/24] Albuterol Sulfate [Ventolin Hfa] 18 gm IH UD 07/14/20 [History Confirmed 03/22/24] Ezetimibe 10 mg [Zetia 10 MG] 10 mg PO DAILY 07/14/20 [History Confirmed 03/22/24] Levothyroxine Sodium 50 mcg PO DAILY 07/14/20 [History Confirmed 03/22/24] Nitroglycerin 0.4 mg Tablet [Nitrostat 0.4 MG Tablet] 0.4 mg SL Q5MIN PRN MR X 3 PRN 07/14/20 [History Confirmed 03/22/24] Trazodone HCl 100 mg PO HS 07/14/20 [History Confirmed 03/22/24] Isosorbide Mononitrate [Isosorbide Mononitrate ER] 60 mg PO DAILY #30 tab.er.24h 07/15/20 [Rx Confirmed 03/22/24] Dapagliflozin/Metformin HCl [Xigduo Xr 10 mg-1,000 mg Tab] 1 each PO DAILY 07/31/20 [History Confirmed 03/22/24] Atorvastatin Calcium 40 mg PO 03/22/24 [History] Duloxetine HCl 30 mg [Cymbalta 30 MG Capsule] 60 mg PO DAILY 03/22/24 [History Confirmed 03/22/24] Ergocalciferol (Vitamin D2) [Vitamin D2] 50,000 unit PO WEEKLY 03/22/24 [History Confirmed 03/22/24] Finerenone [Kerendia] 20 mg PO DAILY 03/22/24 [History Confirmed 03/22/24] Hydrocodone/Acetaminophen [Hydrocodone-Acetamin 5-325 mg] 1 tab PO Q6HPRN PRN 7 Days #20 tablet MDD 4 03/22/24 [Rx] Potassium Chloride [Klor-Con] 20 meq PO DAILY 03/22/24 [History Confirmed 03/22/24] Tirzepatide [Mounjaro] 10 mg SQ WEEKLY 03/22/24 [History Confirmed 03/22/24] Allergies/Adverse Reactions: Allergies Allergy/AdvReac Type Severity Reaction Status Date / Time niacin Allergy Severe swelling, Verified 03/22/24 07:04 itching, throat closing - Past Medical History Past Medical History: Yes Neurological History: Peripheral Neuropathy ENT History: No Pertinent History Cardiac History: Angina, High Cholesterol, Hypertension Respiratory History: COPD, Pneumonia, Sleep Apnea Endocrine Medical History: Diabetes Type II, Hypothyroidism, Liver Disease Musculoskelatal History: Arthritis GI Medical History: Esophageal Disorder, GERD History: Renal Disease Pyscho-Social History: Anxiety, Depression Reproductive Disorders: Breast Cancer Comment: FATTY LIVER AND FIBROSIS. PT. HAS LOST 82# IN 2 YEARS. TAKING MONJERO. PYLORIC STENOSIS. PT. NOTES FREQUENT CP AND STM ISSUES; TO BE REFERRED TO NEUROLOGY. TO HAVE BREAST BX NEXT WEEK D/T [facility]. - Past Surgical History Past Surgical History: Yes Neuro Surgical History: No Pertinent History Cardiac History: Cardiac Catheterization Respiratory Surgery: No Pertinent History GI Surgical History: No Pertinent History Genitourinary Surgical Hx: No Pertinent History Musculskeletal Surgical Hx: No Pertinent History Female Surgical History: Tubal Ligation Other Surgical History: vein stripping in right leg Significant Family History: cancer (mom breast cancer/Dad prostate cancer), diabetes - Social History Smoking Status: Former smoker Exposure to second hand smoke: Yes Alcohol: Rarely Drug Use: none - Physical Exam Vital Signs: Vital Signs - 24 hr Temp Pulse Resp BP BP Pulse Ox 03/22/24 17:44 83 16 92 L 03/22/24 17:23 97.6 F 79 14 87/56 96 03/22/24 17:12 80 16 76/53 90 L 03/22/24 17:06 97.8 F 80 14 99/52 90 L 03/22/24 17:00 82 14 94/54 90 L 03/22/24 16:55 78 16 96/54 93 L 03/22/24 16:50 97.8 F 78 16 96/54 96 03/22/24 16:43 97.7 F 79 16 96/55 94 L 03/22/24 16:32 88 16 83/48 95 03/22/24 16:15 97.4 F 88 16 85/50 91 L 03/22/24 07:50 97.1 F 98 H 16 97/58 96 03/22/24 07:33 97.1 F 98 H 16 97/58 96 General Appearance: no apparent distress Neurologic Exam: alert, oriented x 3, cooperative Eye Exam: PERRL/EOMI Ears, Nose, Throat Exam: normal ENT inspection Neck Exam: normal inspection, carotid bruit Respiratory Exam: normal breath sounds, lungs clear Cardiovascular Exam: regular rate/rhythm, normal heart sounds Gastrointestinal/Abdomen Exam: soft, normal bowel sounds Pelvic Exam: not done Rectal Exam: deferred Back Exam: normal inspection Extremity Exam: normal inspection Skin Exam: normal color Results - Labs Lab/Micro Results: Lab Results-Last 24 Hours 03/22/24 03/22/24 03/22/24 Range/Units 07:33 07:33 15:10 WBC 9.7 (3.98-10.04) x10^3/uL RBC 5.29 H (3.93-5.22) x10^6/uL Hgb 14.6 (11.2-15.7) g/dL Hct 43.3 (34.1-44.9) % MCV 81.9 (79.4-94.8) fL MCH 27.6 (25.6-32.2) pg MCHC 33.7 (32.2-35.5) g/dL RDW 12.8 (11.7-14.4) % Plt Count 322 (182-369) x10^3/uL MPV 10.3 (9.4-12.3) fL Gran % 61.6 (34.0-71.1) % Immature Gran % (Auto) 0.4 (0.001-0.429) % Nucleat RBC Rel Count 0.0 (0.00-0.2) % Eos # (Auto) 0.36 (0.04-0.36) x10^3/uL Immature Gran # (Auto) 0.04 H (0.001-0.031) x10^3u/L Absolute Lymphs (auto) 2.38 (1.18-3.74) x10^3/uL Absolute Monos (auto) 0.83 (0.24-0.86) x10^3/uL Absolute Nucleated RBC 0.00 (0.00-0.012) x10^3u/L Lymphocytes % 24.6 (19.3-51.7) % Monocytes % 8.6 (4.7-12.5) % Eosinophils % 3.7 (0.7-5.8) % Basophils % 1.1 (0.1-1.2) % Absolute Granulocytes 5.95 (1.56-6.13) x10^3/uL Basophils # 0.11 H (0.01-0.08) x10^3/uL Sodium 133 L (135-145) mmol/L Potassium 3.6 (3.5-5.1) mmol/L Chloride 101 (98-107) mmol/L Carbon Dioxide 20 L (22-30) mmol/L Anion Gap 15.9 H (5-15) MEQ/L BUN 18 H (7-17) mg/dL Creatinine 1.02 (0.52-1.04) mg/dL Estimated GFR 62.2 ML/MIN Glucose 116 H (74-106) mg/dL POC Glucometer 134 H (74 to 106) mg/dL Calcium 10.0 (8.4-10.2) mg/dL 03/22/24 Range/Units 16:36 WBC (3.98-10.04) x10^3/uL RBC (3.93-5.22) x10^6/uL Hgb (11.2-15.7) g/dL Hct (34.1-44.9) % MCV (79.4-94.8) fL MCH (25.6-32.2) pg MCHC (32.2-35.5) g/dL RDW (11.7-14.4) % Plt Count (182-369) x10^3/uL MPV (9.4-12.3) fL Gran % (34.0-71.1) % Immature Gran % (Auto) (0.001-0.429) % Nucleat RBC Rel Count (0.00-0.2) % Eos # (Auto) (0.04-0.36) x10^3/uL Immature Gran # (Auto) (0.001-0.031) x10^3u/L Absolute Lymphs (auto) (1.18-3.74) x10^3/uL Absolute Monos (auto) (0.24-0.86) x10^3/uL Absolute Nucleated RBC (0.00-0.012) x10^3u/L Lymphocytes % (19.3-51.7) % Monocytes % (4.7-12.5) % Eosinophils % (0.7-5.8) % Basophils % (0.1-1.2) % Absolute Granulocytes (1.56-6.13) x10^3/uL Basophils # (0.01-0.08) x10^3/uL Sodium (135-145) mmol/L Potassium (3.5-5.1) mmol/L Chloride (98-107) mmol/L Carbon Dioxide (22-30) mmol/L Anion Gap (5-15) MEQ/L BUN (7-17) mg/dL Creatinine (0.52-1.04) mg/dL Estimated GFR ML/MIN Glucose (74-106) mg/dL POC Glucometer 131 H (74 to 106) mg/dL Calcium (8.4-10.2) mg/dL - Radiology Impressions Radiology Exams & Impressions: Radiology Procedures Category Date Time Status NEEDLE LOCALIZATION Routine Exams 03/22/24 07:52 Completed SURGICAL SPECIMEN Routine Exams 03/22/24 07:52 Completed [place] Node Localization [NUCMED] Routine Exams 03/22/24 10:13 Completed - Other Procedures and Tests Respiratory Therapy 03/22/24 17:15 Oxygen Nasal Cannula 2 lpm 03/22/24 17:43 Respiratory Therapy Assessment DAILY 03/22/24 21:00 BiPap/CPAP ROUTINE Assessment/Plan (1) Invasive ductal carcinoma of right breast, stage 1 Current Visit: Yes Status: Acute Assessment & Plan: -s/p right breast lumpectomy - patient of Dr. He -Planned radiation initial consult 04/11/24 Code(s): C50.911 - MALIGNANT NEOPLASM OF UNSP SITE OF RIGHT FEMALE BREAST (2) Status post right breast lumpectomy Current Visit: Yes Status: Acute Assessment & Plan: -Dr. Jacqueline Stuart following -dressing changes and management per surgery team Code(s): Z98.890 - OTHER SPECIFIED POSTPROCEDURAL STATES (3) Hypotension Current Visit: Yes Status: Acute Assessment & Plan: -Most likely secondary to anesthesia -received 500ml fluid bolus in PACU - will continue fluids at 75ml/hr -monitor BP closely - hold bp meds for now -BP stable at 102/65 Code(s): I95.9 - HYPOTENSION, UNSPECIFIED (4) HLD (hyperlipidemia) Current Visit: Yes Status: Acute Assessment & Plan: -continue home regimen Code(s): E78.5 - HYPERLIPIDEMIA, UNSPECIFIED (5) COPD (chronic obstructive pulmonary disease) Current Visit: Yes Status: Acute Assessment & Plan: -No home oxygen -Supplemental oxygen for goal spo2 > 92% -RT eval -NEBs prn -continue home meds -CPAP at night (6) YVONNE (obstructive sleep apnea) Current Visit: Yes Status: Acute Assessment & Plan: -CPAP Code(s): G47.33 - OBSTRUCTIVE SLEEP APNEA (ADULT) (PEDIATRIC) (7) Hypothyroid Current Visit: Yes Status: Acute Assessment & Plan: -continue levothyroxine Code(s): E03.9 - HYPOTHYROIDISM, UNSPECIFIED (8) HTN (hypertension) Current Visit: Yes Status: Acute Assessment & Plan: -hypotensive following lumpectomy- hold bp meds until pressures stable Code(s): I10 - ESSENTIAL (PRIMARY) HYPERTENSION (9) DM type 2 (diabetes mellitus, type 2) Current Visit: No Status: Acute Assessment & Plan: -SSI -ADA diet -accuchecks VTE: lovenox per surgery team Dispo: tomorrow (10) Fatty liver Current Visit: No Status: Acute Code(s): K76.0 - FATTY (CHANGE OF) LIVER, NOT ELSEWHERE CLASSIFIED Telemedicine Encounter - Telemedicine Encounter Telemedicine Encounter: "The entirety of this encounter was performed via Telemedicine" This visit was performed using real-time audio and video connection between my location and thepatients locationwith the assistance of a surrogateat the patients location. Written or verbal consent was obtained from the patient/guardian to perform this visit using[id number] technology. Any patient questions regarding the telemedicine interaction were answered.
[2024-03-22] MEDS ORDERED: Nitrostat 0.4 MG Tablet SL PRN (18:21)
[2024-03-22] MEDS: Sodium Chloride 0.9% 1000 ML 1,000 ML IV SCH (18:29)
[2024-03-22] MEDS ORDERED: VENTOLIN COMMON CANISTER IH SCH (18:30)
[2024-03-22] MEDS ORDERED: DUONEB 0.5-3 MG/3 ml Neb IH SCH (19:00)
[2024-03-22] MEDS: HUMALOG SQ PRN (21:16)
[2024-03-22] MEDS: NEURONTIN PO SCH (21:16)
[2024-03-23] MEDS: TYLENOL 325 MG PO PRN (00:08)
--- NOTE | 2024-03-23 05:20 | PCM.DS ---
Discharge Summary Date of Admission: 03/22/24 17:28 Date of Discharge: 03/23/24 Admitting Physician: MATT PEÑA MD Primary Care Provider: ESTEVAN GALDAMEZ ASHLEE Allergies Allergies niacin Allergy (Severe, Verified 03/22/24 07:04) swelling, itching, throat closing Hospital Summary - Hospital Course Hospital Course: is a 64 year old female with a pmhx of Right Breast Cancer (invasive ductal carcinoma grade 1- oncologist Dr. He) HTN, HLD, OA, fatty liver, YVONNE, hypothyroid, and gastric stenosis patient of Dr. Edward Stuart presents following a right breast lumpectomy. Patient was found to be hypotensive in PACU. Hospitalist team consulted for medical management and hypotension. Hypotension resolved. No complaints per patient. Surgery team has cleared patient for discharge. She is to follow up in two weeks. Okay to shower. Wear binder when not showering. Discharge Note New Diagnosis: Hypotension New Medications: per surgery Follow Up: surgery Outpatient testing to order: Latest Assessment & Plan (1) Invasive ductal carcinoma of right breast, stage 1 Current Visit: Yes Status: Acute Assessment & Plan: -s/p right breast lumpectomy - patient of Dr. He -Planned radiation initial consult 04/11/24 Code(s): C50.911 - MALIGNANT NEOPLASM OF UNSP SITE OF RIGHT FEMALE BREAST (2) Status post right breast lumpectomy Current Visit: Yes Status: Acute Assessment & Plan: -Dr. Jacqueline Stuart following -dressing changes and management per surgery team Code(s): Z98.890 - OTHER SPECIFIED POSTPROCEDURAL STATES (3) Hypotension Current Visit: Yes Status: Acute Assessment & Plan: -Most likely secondary to anesthesia -received 500ml fluid bolus in PACU - will continue fluids at 75ml/hr -monitor BP closely - hold bp meds for now -BP stable at 102/65 Code(s): I95.9 - HYPOTENSION, UNSPECIFIED (4) HLD (hyperlipidemia) Current Visit: Yes Status: Acute Assessment & Plan: -continue home regimen Code(s): E78.5 - HYPERLIPIDEMIA, UNSPECIFIED (5) COPD (chronic obstructive pulmonary disease) Current Visit: Yes Status: Acute Assessment & Plan: -No home oxygen -Supplemental oxygen for goal spo2 > 92% -RT eval -NEBs prn -continue home meds -CPAP at night (6) YVONNE (obstructive sleep apnea) Current Visit: Yes Status: Acute Assessment & Plan: -CPAP Code(s): G47.33 - OBSTRUCTIVE SLEEP APNEA (ADULT) (PEDIATRIC) (7) Hypothyroid Current Visit: Yes Status: Acute Assessment & Plan: -continue levothyroxine Code(s): E03.9 - HYPOTHYROIDISM, UNSPECIFIED (8) HTN (hypertension) Current Visit: Yes Status: Acute Assessment & Plan: -hypotensive following lumpectomy- hold bp meds until pressures stable Code(s): I10 - ESSENTIAL (PRIMARY) HYPERTENSION (9) DM type 2 (diabetes mellitus, type 2) Current Visit: No Status: Acute Assessment & Plan: -SSI -ADA diet -accuchecks VTE: lovenox per surgery team Dispo: tomorrow (10) Fatty liver Current Visit: No Status: Acute Code(s): K76.0 - FATTY (CHANGE OF) LIVER, NOT ELSEWHERE CLASSIFIED Telemedicine Encounter I spent 35 minutes [id number] with the patient on the day of discharge performing discharge exam, discussing hospital stay and discharge instructions with patient and caregivers, preparation of discharge records, prescriptions & referral forms and addressing any questions/concerns the patient had as documented above. - Vitals & Intake/Output Vital Signs: Vital Signs Temperature 97.6 F 03/23/24 04:41 Pulse Rate 79 03/23/24 04:41 Respiratory Rate 21 03/23/24 04:41 Blood Pressure 130/74 03/23/24 04:41 O2 Sat by Pulse Oximetry 95 03/23/24 04:41 Intake & Output: Intake & Output 03/20/24 03/21/24 03/22/24 03/23/24 11:59 11:59 11:59 11:59 Intake Total 240 Output Total 500 Balance -260 Weight 101.2 kg 101.3 kg - Lab Result Diagrams: 03/23/24 09:05 03/23/24 09:05 Lab Results-Last 24 Hrs: Lab Results-Last 24 Hours 03/22/24 03/22/24 03/22/24 Range/Units 07:33 07:33 15:10 WBC 9.7 (3.98-10.04) x10^3/uL RBC 5.29 H (3.93-5.22) x10^6/uL Hgb 14.6 (11.2-15.7) g/dL Hct 43.3 (34.1-44.9) % MCV 81.9 (79.4-94.8) fL MCH 27.6 (25.6-32.2) pg MCHC 33.7 (32.2-35.5) g/dL RDW 12.8 (11.7-14.4) % Plt Count 322 (182-369) x10^3/uL MPV 10.3 (9.4-12.3) fL Gran % 61.6 (34.0-71.1) % Immature Gran % (Auto) 0.4 (0.001-0.429) % Nucleat RBC Rel Count 0.0 (0.00-0.2) % Eos # (Auto) 0.36 (0.04-0.36) x10^3/uL Immature Gran # (Auto) 0.04 H (0.001-0.031) x10^3u/L Absolute Lymphs (auto) 2.38 (1.18-3.74) x10^3/uL Absolute Monos (auto) 0.83 (0.24-0.86) x10^3/uL Absolute Nucleated RBC 0.00 (0.00-0.012) x10^3u/L Lymphocytes % 24.6 (19.3-51.7) % Monocytes % 8.6 (4.7-12.5) % Eosinophils % 3.7 (0.7-5.8) % Basophils % 1.1 (0.1-1.2) % Absolute Granulocytes 5.95 (1.56-6.13) x10^3/uL Basophils # 0.11 H (0.01-0.08) x10^3/uL Sodium 133 L (135-145) mmol/L Potassium 3.6 (3.5-5.1) mmol/L Chloride 101 (98-107) mmol/L Carbon Dioxide 20 L (22-30) mmol/L Anion Gap 15.9 H (5-15) MEQ/L BUN 18 H (7-17) mg/dL Creatinine 1.02 (0.52-1.04) mg/dL Estimated GFR 62.2 ML/MIN Glucose 116 H (74-106) mg/dL POC Glucometer 134 H (74 to 106) mg/dL Calcium 10.0 (8.4-10.2) mg/dL 03/22/24 03/22/24 Range/Units 16:36 20:52 WBC (3.98-10.04) x10^3/uL RBC (3.93-5.22) x10^6/uL Hgb (11.2-15.7) g/dL Hct (34.1-44.9) % MCV (79.4-94.8) fL MCH (25.6-32.2) pg MCHC (32.2-35.5) g/dL RDW (11.7-14.4) % Plt Count (182-369) x10^3/uL MPV (9.4-12.3) fL Gran % (34.0-71.1) % Immature Gran % (Auto) (0.001-0.429) % Nucleat RBC Rel Count (0.00-0.2) % Eos # (Auto) (0.04-0.36) x10^3/uL Immature Gran # (Auto) (0.001-0.031) x10^3u/L Absolute Lymphs (auto) (1.18-3.74) x10^3/uL Absolute Monos (auto) (0.24-0.86) x10^3/uL Absolute Nucleated RBC (0.00-0.012) x10^3u/L Lymphocytes % (19.3-51.7) % Monocytes % (4.7-12.5) % Eosinophils % (0.7-5.8) % Basophils % (0.1-1.2) % Absolute Granulocytes (1.56-6.13) x10^3/uL Basophils # (0.01-0.08) x10^3/uL Sodium (135-145) mmol/L Potassium (3.5-5.1) mmol/L Chloride (98-107) mmol/L Carbon Dioxide (22-30) mmol/L Anion Gap (5-15) MEQ/L BUN (7-17) mg/dL Creatinine (0.52-1.04) mg/dL Estimated GFR ML/MIN Glucose (74-106) mg/dL POC Glucometer 131 H 222 H (74 to 106) mg/dL Calcium (8.4-10.2) mg/dL - Radiology Exams Ordered Rad Exams-Entire Visit: Radiology Procedures Category Date Time Status NEEDLE LOCALIZATION Routine Exams 03/22/24 07:52 Completed SURGICAL SPECIMEN Routine Exams 03/22/24 07:52 Completed [place] Node Localization [NUCMED] Routine Exams 03/22/24 10:13 Completed - Procedures and Test Procedures and Tests throughout Hospitalization: Therapy Orders & Screens 03/22/24 06:43 EKG STAT Comment: 03/22/24 17:15 PT Eval & Treat ( Order) ONCE Reason for Eval:: surgery Diagnosis: Breast Cancer Oxygen Nasal Cannula 2 lpm Comment: Diagnosis: Breast Cancer Respiratory Therapy Consult ONCE Comment: Reason For Exam: Diagnosis: Breast Cancer 03/22/24 17:43 Respiratory Therapy Assessment DAILY Comment: Diagnosis: Breast Cancer 03/22/24 18:20 Respiratory Therapy Consult ONCE Comment: Reason For Exam: Diagnosis: lumpectomy/breast cancer/hypotension 03/22/24 18:25 BiPap/CPAP ROUTINE Comment: HOME UNIT PER SETTINGS Diagnosis: Breast Cancer Discharge Exam General Appearance: no apparent distress Neurologic Exam: alert, oriented x 3, cooperative Eye Exam: PERRL Ears, Nose, Throat Exam: normal ENT inspection Neck Exam: normal inspection Respiratory Exam: normal breath sounds, lungs clear Cardiovascular Exam: regular rate/rhythm, normal heart sounds Gastrointestinal/Abdomen Exam: soft, normal bowel sounds Pelvic Exam: deferred Rectal Exam: deferred Back Exam: normal inspection Extremity Exam: normal inspection Skin Exam: other (right breast surgical incision covered with dressing/binder) Wound Assessment: Skin/Wound Assessment Wound/Incision Assessment Start: 03/22/24 20:28 Text: Status: Active Freq: Protocol: Document 03/22/24 20:28 MASOUD (Rec: 03/22/24 20:29 ADRURY [id number]) Wound/Incision Assessment Right Other Wound Assessment Shift Assessment Wound Type Incision Dressing Status Drainage circled Drainage Amount Minimal Comment Right breast. [address], minimal amount of drainage present on both dressings, circled at this time. Binder in place Wound Photo Photo Taken No Final Diagnosis/Problem List - Final Discharge Diagnosis/Problem (1) Invasive ductal carcinoma of right breast, stage 1 Current Visit: Yes Status: Chronic Code(s): C50.911 - MALIGNANT NEOPLASM OF UNSP SITE OF RIGHT FEMALE BREAST (2) Status post right breast lumpectomy Current Visit: Yes Status: Chronic Code(s): Z98.890 - OTHER SPECIFIED POSTPROCEDURAL STATES (3) Hypotension Current Visit: Yes Status: Resolved Code(s): I95.9 - HYPOTENSION, UNSPECIFIED (4) HLD (hyperlipidemia) Current Visit: Yes Status: Chronic Code(s): E78.5 - HYPERLIPIDEMIA, UNSPECIFIED (5) COPD (chronic obstructive pulmonary disease) Current Visit: Yes Status: Chronic (6) YVONNE (obstructive sleep apnea) Current Visit: Yes Status: Chronic Code(s): G47.33 - OBSTRUCTIVE SLEEP APNEA (ADULT) (PEDIATRIC) (7) Hypothyroid Current Visit: Yes Status: Chronic Code(s): E03.9 - HYPOTHYROIDISM, UNSPECIFIED (8) HTN (hypertension) Current Visit: Yes Status: Chronic Code(s): I10 - ESSENTIAL (PRIMARY) HYPERTENSION (9) DM type 2 (diabetes mellitus, type 2) Current Visit: No Status: Chronic (10) Fatty liver Current Visit: No Status: Chronic Code(s): K76.0 - FATTY (CHANGE OF) LIVER, NOT ELSEWHERE CLASSIFIED - Discharge Discharge Date: 03/23/24 Disposition: Home, Self-Care Condition: Stable Prescriptions: Continue Aspirin EC 81 mg [Ecotrin 81 mg] 81 mg PO DAILY Gabapentin 300 mg PO BID Ipratropium/Albuterol Sulfate [Iprat-Albut 0.5-3(2.5) mg/3 ml] 3 ml IH QID PRN PRN Reason: Shortness Of Breath Losartan/Hydrochlorothiazide [Losartan-Hctz 50-12.5 mg Tab] 1 each PO DAILY Trazodone HCl 100 mg PO HS Levothyroxine Sodium 50 mcg PO DAILY Ezetimibe 10 mg [Zetia 10 MG] 10 mg PO DAILY Nitroglycerin 0.4 mg Tablet [Nitrostat 0.4 MG Tablet] 0.4 mg SL Q5MIN PRN MR X 3 PRN PRN Reason: Chest Pain Albuterol Sulfate [Ventolin Hfa] 18 gm IH UD Isosorbide Mononitrate [Isosorbide Mononitrate ER] 60 mg PO DAILY #30 tab.er.24h Dapagliflozin/Metformin HCl [Xigduo Xr 10 mg-1,000 mg Tab] 1 each PO DAILY Tirzepatide [Mounjaro] 10 mg SQ WEEKLY Ergocalciferol (Vitamin D2) [Vitamin D2] 50,000 unit PO WEEKLY Potassium Chloride [Klor-Con] 20 meq PO DAILY Finerenone [Kerendia] 20 mg PO DAILY Duloxetine HCl 30 mg [Cymbalta 30 MG Capsule] 60 mg PO HS Atorvastatin Calcium 40 mg PO DAILY Hydrocodone/Acetaminophen [Hydrocodone-Acetamin 5-325 mg] 1 tab PO Q6HPRN PRN 7 Days #20 tablet MDD 4 PRN Reason: Pain Additional Instructions: WEAR BINDER FOR 2 WEEKS, UNLESS SHOWERING Follow up with: ESTEVAN GALDAMEZ MD [Primary Care Provider] - 03/30/24 2:15 pm EDWARD STUART MD [ACTIVE STAFF] - 04/05/24 10:30 am (at [facility] )
[2024-03-23] MEDS ORDERED: MEDICATION INTERVENTION MC SCH (07:15)
[2024-03-23 07:27] VITALS: RESP 16
[2024-03-23 09:16] LABS: Absolute Neutrophil Ct (ANC) 7.98 x10^3/uL (1.56-6.13); BASOPHIL % 0.4 % (0.1-1.2); Basophil (Absolute #) 0.04 x10^3/uL (0.01-0.08); Eosinophil % 0.7 % (0.7-5.8); Eosinophil (Absolute #) 0.08 x10^3/uL (0.04-0.36); Hematocrit 37.7 % (34.1-44.9); Hemoglobin 12.3 g/dL (11.2-15.7); IMMATURE GRAN # 0.05 x10^3u/L (0.001-0.031); IMMATURE GRAN % 0.5 % (0.001-0.429); Lymphocyte (Absolute #) 1.77 x10^3/uL (1.18-3.74); Lymphocytes % 16.6 % (19.3-51.7); Mean Cell Volume 84.5 fL (79.4-94.8); Mean Corpuscular Hemoglobin 27.6 pg (25.6-32.2); Mean Corpuscular Hgb Concent. 32.6 g/dL (32.2-35.5); Mean Platelet Volume 10.3 fL (9.4-12.3); Monocyte (Absolute #) 0.76 x10^3/uL (0.24-0.86); Monocytes % 7.1 % (4.7-12.5); Neutrophil % 74.7 % (34.0-71.1); Platelet Count 269 x10^3/uL (182-369); Red Blood Count 4.46 x10^6/uL (3.93-5.22); Red Cell Distribution Width 13.2 % (11.7-14.4); White Blood Count 10.7 x10^3/uL (3.98-10.04)
[2024-03-23 09:22] LABS: ANION GAP 10.5 MEQ/L (5-15); BILIRUBIN,TOTAL 0.6 mg/dL (0.2-1.3); Calcium 8.9 mg/dL (8.4-10.2); Creatinine 1 0.78 mg/dL (0.52-1.04); EST GLOMERULAR FILTRATION RATE 85.8 ML/MIN; Potassium 3.7 mmol/L (3.5-5.1); Total Protein 6.7 g/dL (6.3-8.2)
[2024-03-23] MEDS: CHLORASEPTIC SPRAY 180 ML PO PRN (09:58)
[2024-03-23] MEDS ORDERED: LIPITOR 40MG PO SCH (10:00)
[2024-03-23] MEDS ORDERED: NON-FORMULARY ITEM (Finerenone [Kerendia] 20 MG Tablet) PO SCH (10:00)
[2024-03-23] MEDS ORDERED: NON-FORMULARY ITEM (Potassium Chloride [Klor-Con] 20 MEQ Packet) PO SCH (10:00)
[2024-03-23] MEDS ORDERED: NON-FORMULARY ITEM (Levothyroxine Sodium [Levothyroxine Sodium] 50 MCG Capsule) PO SCH (10:00)
[2024-03-23] MEDS: Cymbalta 30 MG Capsule PO SCH (11:13)
[2024-03-23] MEDS: ENOXAPARIN SODIUM SQ SCH (11:13)
[2024-03-23] MEDS: Klor Con PO SCH (11:16)
[2024-03-23] MEDS: SYNTHROID 50 MCG PO SCH (11:16)
[2024-03-23] MEDS: Zetia 10 MG PO SCH (11:17)
[2024-03-23] MEDS: ZOCOR 20MG PO SCH (11:17)
[2024-03-23 11:29] VITALS: BP 113/57; PULSE 79; TEMP 98.1; O2SAT 96
--- NOTE | 2024-03-23 15:32 | OP ---
SURGERY DATE/TIME: 03/22/2024 [id number] PREOPERATIVE DIAGNOSIS: Right breast cancer. POSTOPERATIVE DIAGNOSIS: Right breast cancer. PROCEDURES: 1) Wire localized partial mastectomy, right breast. 2) Right axillary sentinel lymph node biopsy. SURGEON: Edward Stuart MD ANESTHESIA: General. ESTIMATED BLOOD LOSS: Minimal. PATIENT CONDITION: Stable. COMPLICATIONS: None. SPECIMENS: 1) Right lumpectomy short superior long lateral. 2) Right axillary sentinel lymph node, number 1 blue, counts 460. 3) Additional right axillary tissue. 4) Right axillary lymph node, not blue, counts of 10. 5) Radiographic evaluation of specimen. INDICATIONS: The patient is a 64-year-old female with a maternal mother with breast cancer at age 58, G1, P1, post menopausal that had an abnormality on imaging right breast, then biopsied but ultimately has a right breast 10 o'clock 5 cm from the nipple, 1.1 cm biopsy-proven ductal carcinoma, ER positive, NM positive, HER-2 negative. Ultrasound negative axilla. Genetic testing is negative. Discussion had with the patient. Risks of infection, bleeding, injury to nearby structure. Options of a lumpectomy versus mastectomy, both with a sentinel lymph node biopsy, option of a reconstruction discussed, but ultimately, she wants to proceed with the lumpectomy with radiation to sentinel lymph node. She presents for that today. FINDINGS: One hot node, 1 minimally reactive node, satisfactory for radiographic evaluation. DESCRIPTION OF PROCEDURE AND FINDINGS: Patient brought to the operating room. She had been marked in the preoperative holding area after wire localization as well as lymph node scintigraphy identifying a sentinel lymph node. Route anesthesia, prep and drape. Time out performed. Received preoperative antibiotic. Methylene blue diluted 1:2 is injected periareolar and then massaged for 5 minutes. Incision is made at the inferior axillary hairline crease, carried down through the fascia. There are counts in the axilla. She does have a deep axilla but there are counts identified. Dissected down to a blue hot node which was taken and that is counts 460 blue, sent for pathology. There is an immediately adjacent kind of firmer feeling node that is less than 1 cm, which was also excised and sent. That one is not blue and counts are 10. There are no residual counts in the axilla. There are no additional blue nodes in the axilla or palpable nodes in the axilla. That is all satisfactory, hemostatic. Fascia closed with 2-0 Vicryl suture, 3-0 Vicryl deep dermal. Skin was closed with 4-0 Vicryl sutures. The wire is a lateral approach wire localization on ellipses marked out about 8 cm carried down through skin, subcutaneous breast and then an elliptical excision is made. Then towards the tip of the wire, a more cylindrical excision but that is performed and the specimen is then taken to Radiology personally and the radiograph evaluation of the specimen shows adequate position of the wire. Due to limitations of the machine, orthogonal views cannot really be obtained as it requires compression to obtain the image, but it does look satisfactory and it is discussed with the radiologist who agrees. The wound is irrigated out. There is good hemostasis. Clips are used to tim the cavity. Then the breast tissue is reapproximated in layers of 2-0 Vicryl suture, deep dermal 3-0 Vicryl and skin with 4-0 Vicryl sutures. Steri-Strips and sterile dressing applied. All counts were correct. Patient tolerated the procedure well, was extubated and taken to Recovery in stable condition.
[2024-03-24] MEDS ORDERED: VITAMIN D2 PO SCH (10:00)
== END 2024-03-23 15:55 | disposition home or self-care (01) ==
LOC: SDC 06:54 → MED SURG 17:28 → SDC 18:08
PROVIDERS: ADMIT Internal Medicine; ATTEND Internal Medicine
DX: C50.911 Malignant neoplasm of unspecified site of right female breast (principal); I95.9 Hypotension, unspecified; E78.5 Hyperlipidemia, unspecified; J44.9 Chronic obstructive pulmonary disease, unspecified; G47.33 Obstructive sleep apnea (adult) (pediatric); E03.9 Hypothyroidism, unspecified; I10 Essential (primary) hypertension; E11.9 Type 2 diabetes mellitus without complications; K76.0 Fatty (change of) liver, not elsewhere classified; Z79.899 Other long term (current) drug therapy
CPT/HCPCS: 19281; 19307; 36415; 76098; 78195; 80048; 80053; 82947; 85025; 93005; 94760; A9541; 93268; J0330; J0690; J1171; J1650; J1817; J1885; J2250; J2371; J2405; J2704; J3010; A9270-GY; G0378; Q9968